=== PATIENT | male | born 1935 | race Caucasian/White ===

== ENCOUNTER → 2016-05-19 | Outpatient (CLI) | payer MEDICARE, BC ==
[2016-05-19 11:35] LABS: CHLORIDE,CL 110 mmol/L (98-110); SODIUM,NA 142 mmol/L (136-146)
== END ==
LOC: MW.CHIM 10:59
PROVIDERS: ATTEND Internal Medicine
DX: N28.9 Disorder of kidney and ureter, unspecified (principal)
CPT/HCPCS: 36415; 80053; 85025; 99214

== ENCOUNTER → 2016-06-28 | Outpatient (CLI) | payer MEDICARE, BC ==
[2016-06-28 11:06] LABS: CHLORIDE,CL 110 mmol/L (98-110); SODIUM,NA 142 mmol/L (136-146)
== END | disposition home or self-care (01) ==
LOC: MW.CHIM 10:17
PROVIDERS: ATTEND Internal Medicine
DX: R41.82 Altered mental status, unspecified (principal); I67.89 Other cerebrovascular disease; R46.89 Other symptoms and signs involving appearance and behavior
CPT/HCPCS: 36415; 80053; 81001; 85025; 87086; G0463

== ENCOUNTER → 2016-06-30 | Outpatient (CLI) | payer MEDICARE, BC ==
--- NOTE | 2016-06-30 12:14 | CT ---
EXAMINATION: Non contrast CT head. Coronal and sagittal reformats. HISTORY: Altered mental status FINDINGS: No evidence of intra or extra axial hemorrhage, mass, midline shift, hydrocephalus or edema. Mild t o moderate periventricular white matter hypodensities are noted. No hypoattenuation changes in the major vascular territories to suggest acute infarct. No abnormal intracranial calcifications are detected. No evidence of substantial vascular calcifications. Paranasal sinuses and mastoid air cells are well aerated without substantial findings. Pituitary fo ssa appears unremarkable. The calvarium is intact. No evidence of skull fracture. IMPRESSION: 1. No acute intracranial findings. 2. Mild to moderate small vessel ischemic changes.
== END | disposition home or self-care (01) ==
LOC: MW.DI 10:55
PROVIDERS: ATTEND Internal Medicine
DX: R41.82 Altered mental status, unspecified (principal); I67.89 Other cerebrovascular disease
CPT/HCPCS: 70450; 70450-26

== ENCOUNTER 2017-01-03 11:50 | Inpatient (IN) | payer MEDICARE, BC ==
[2017-01-03] MEDS ORDERED: Sodium Chloride 0.9% 2.5 ML Syringe FLUSH PRN (12:20)
[2017-01-03] MEDS ORDERED: Ondansetron 4 MG/2 ML SDV IVPUSH PRN (12:20)
--- NOTE | 2017-01-03 12:34 | PCM.HP ---
Addendum entered and electronically signed by Ananya Crenshaw NP 01/03/17 17:42 : Noted to be cachetic in appearance. From December 15 appointment to todays appointment he has almost 20 lb weight loss noted. Original Note: H&P History of Present Illness - General Date of Service: 01/03/17 Admit Problem/Dx: Admission Diagnosis/Problem Admission Diagnosis/Problem Acute kidney injury Source of Information: Patient, Family (daughter and at bedside) History Limitations: Reports: No Limitations - History of Present Illness Initial Comments - Free Text/Narative: This 81 year old male with pmh of COPD and anxiety presented to Dr. Elam's clinic today with concerns of no appetite, abdominal pain and no energy. They report he has been having some GERD like symptoms for approximately 1 mo, they were seen in PCP the middle of November for L sided chest pain, cardiac workup was negative, he was treated for possible COPD exacerbation with Prednisone and then seen at a walk in clinic and give Augmentin for erythematous throat. He continues to have troubles, especially with eating. He reports nausea and the inability to keep much food or fluids down. He reports pain with a few spoonfuls of soup yesterday. He has been very fatigued and low energy, daughter reports some confusion. He denies abdominal pain otherwise, he has been passing gas and having scant BMs. Denies black or bloody BMs, no chest pain. has SOB and anxiety. He typically takes Lorazepam 0.25 mg BID to TID for anxiety. He has hx of smoking, but quit many years ago. In the clinic leukocytosis noted, 13,000, Hgb 15.7, hct 45.9, Cl 11, Bicarb 15, Na 145, K+ 4.9, BUN 55, Cr 3.2. Ua negative. Abdominal Xray revaeled severe gaseous distension of esophagous and stomach. This was noted on December 15 chest x ray as well. He will be admitted for further evaluation and treated for KARINA secondary to dehydration and possible SBO vs gastroparesis PCP, Dr Pickens. Hsi and his request Full code at this time, but they state if he needs to be kept alive on ventilator, he would not want this or to suspend efforts if it "doesn't look good". - Related Data Allergies/Adverse Reactions: Allergies Allergy/AdvReac Type Severity Reaction Status Date / Time No Known Allergies Allergy Verified 11/18/13 13:40 Home Medications: Home Meds Albuterol Sulfate [Proair Hfa] 2 inh IH Q4H PRN 01/03/17 [History] Amoxicillin/Potassium Clav [Amox-Clav 500-125 mg Tablet] 1 tab PO BID 01/03/17 [ History] LORazepam [LORazepam] 0.5 mg PO TID PRN 01/03/17 [History] Omeprazole [Omeprazole] 20 mg PO ACBREAKFAST 01/03/17 [History] Tiotropium [place] [Spiriva Respimat] 1 inh IH DAILY 01/03/17 [History] Past Medical History Cardiovascular History: Reports: None. Denies: Afib, Blood Clots/VTE/DVT, CAD, High Cholesterol, Hypertension, IA Respiratory History: Reports: COPD, SOB. Denies: PE Gastrointestinal History: Reports: GERD. Denies: Bowel Obstruction, Helicobacter Pylori Genitourinary History: Reports: Chronic Renal Insuffiency Neurological History: Denies: CVA, TIA Psychiatric History: Reports: Anxiety Endocrine/Metabolic History: Denies: Diabetes, Type II, Hypothyroidism - Past Surgical History GI Surgical History: Reports: None Social & Family History - Tobacco Use Smoking Status *Q: Former Smoker Tobacco Use Within Last Twelve Months: Cigarettes - Alcohol Use Alcohol Use History: No - Living Situation & Occupation Living situation: Reports: Occupation: Retired H&P Review of Systems - Review of Systems: Review Of Systems: See Below General: Reports: Fatigue, Decreased Appetite HEENT: Reports: Sore Throat. Denies: Sinus Congestion Pulmonary: Reports: Shortness of Breath. Denies: Cough Cardiovascular: Denies: Chest Pain, Palpitations, Edema Gastrointestinal: Reports: Abdominal Pain (with eating), Diarrhea, Decreased Appetite, Nausea, Vomiting. Denies: Black Stool, Bloody Stool, Difficulty Swallowing, Distension, Hematemesis, Stool Incontinence Genitourinary: Reports: No Symptoms. Denies: Dysuria, Frequency, Burning, Pain Musculoskeletal: Reports: No Symptoms. Denies: Neck Pain Skin: Reports: No Symptoms Psychiatric: Reports: Anxiety Neurological: Reports: Confusion (daughter reports some confusion) Hematologic/Lymphatic: Reports: No Symptoms Immunologic: Reports: No Symptoms Exam - Exam Exam: See Below - Vital Signs Vital Signs: Last Vital Signs Temp 97.7 F 01/03/17 12:07 Pulse 112 H 01/03/17 12:07 Resp 24 H 01/03/17 12:07 BP 139/89 01/03/17 12:07 Pulse Ox 97 01/03/17 12:07 - Exam General: Alert, Oriented, Cooperative, Mild Distress (anxious regarding admission) HEENT: Conjunctiva Clear, Posterior Pharynx Clear (scant erythema), Other ( missing chipped teeth.). No: Mucosa Moist & Wood (dry) Lungs: Clear to Auscultation, Normal Respiratory Effort Cardiovascular: Regular Rhythm, Tachycardia GI/Abdominal Exam: Normal Bowel Sounds, Soft, Non-Tender, No Mass, Other (dry mouth, constantly drinking water and spitting it out. otherwise he reports he will throw it up. ). No: Distended, Guarding, Rigid, Rebound Extremities: Normal Inspection, Normal Range of Motion, Non-Tender, No Pedal Edema, Normal Capillary Refill Neuro Extensive - Mental Status: Alert, Oriented x3 Psychiatric: Alert, Normal Affect, Anxious *Q Meaningful Use (ADM) - VTE *Q VTE Criteria *Q: - Stroke *Q Stroke Criteria *Q: - AMI *Q AMI Criteria *Q: - Problem List (1) KARINA (acute kidney injury) SNOMED Code(s): 83121223 ICD Code: N17.9 - ACUTE KIDNEY FAILURE, UNSPECIFIED Status: Acute Current Visit: Yes (2) Dehydration SNOMED Code(s): 55130323 ICD Code: E86.0 - DEHYDRATION Status: Acute Current Visit: Yes (3) Nausea & vomiting SNOMED Code(s): 35075768 ICD Code: R11.2 - NAUSEA WITH VOMITING, UNSPECIFIED Status: Acute Current Visit: Yes (4) COPD (chronic obstructive pulmonary disease) SNOMED Code(s): 52904084 ICD Code: J44.9 - CHRONIC OBSTRUCTIVE PULMONARY DISEASE, UNSPECIFIED Status : Chronic Current Visit: Yes Qualifiers: COPD type: chronic bronchitis Chronic bronchitis type: unspecified Qualified Code(s): J42 - Unspecified chronic bronchitis (5) Anxiety SNOMED Code(s): 10372278 ICD Code: F41.9 - ANXIETY DISORDER, UNSPECIFIED Status: Chronic Current Visit: Yes Problem List Initiated/Reviewed/Updated: Yes Orders Last 24hrs: Active Orders 24 hr Category Date Time Status Patient Status [ADT] Routine ADT 01/03/17 12:20 Ordered Intake and Output [RC] QSHIFT Care 01/03/17 12:21 Ordered Oxygen Therapy [RC] PRN Care 01/03/17 12:20 Ordered Up With Assistance [RC] ASDIRECTED Care 01/03/17 12:20 Ordered VTE/DVT Education [RC] PER UNIT ROUTINE Care 01/03/17 12:20 Ordered Vital Signs [RC] Q4H Care 01/03/17 12:20 Ordered Nothing Per Oral Diet [DIET] Diet 01/03/17 Dinner Ordered CBC WITH AUTO DIFF [HEME] AM Lab 01/04/17 05:11 Ordered CBC WITH AUTO DIFF [HEME] AM Lab 01/05/17 05:11 Ordered CBC WITH AUTO DIFF [HEME] AM Lab 01/06/17 05:11 Ordered COMPREHENSIVE METABOLIC PN,CMP [CHEM] AM Lab 01/04/17 05:11 Ordered COMPREHENSIVE METABOLIC PN,CMP [CHEM] AM Lab 01/05/17 05:11 Ordered COMPREHENSIVE METABOLIC PN,CMP [CHEM] AM Lab 01/06/17 05:11 Ordered Heparin Sodium Med 01/03/17 21:00 Ordered 5,000 units SUBCUT Q12HR LORazepam [Ativan] Med 01/03/17 12:27 Ordered 0.25 mg IVPUSH Q6H PRN Ondansetron [Zofran] Med 01/03/17 12:20 Ordered 4 mg IVPUSH Q4H PRN Sodium Chloride 0.45% @ 125 MLS/HR(1,000ml) Med 01/03/17 12:30 Ordered Sodium Chloride 0.45% 1,000 ml IV ASDIRECTED Sodium Chloride 0.9% [Saline Flush] Med 01/03/17 12:20 Ordered 2.5 ml FLUSH ASDIRECTED PRN Saline Lock Insert [OM.PC] Routine Oth 01/03/17 12:20 Ordered Resuscitation Status Routine Resus Stat 01/03/17 12:20 Ordered Medication Orders Heparin Sodium (Porcine) (Heparin Sodium) 5,000 units SUBCUT Q12HR DAVID Sodium Chloride (Sodium Chloride 0.45%) 1,000 mls @ 125 mls/hr IV ASDIRECTED ADVID Lorazepam (Ativan) 0.25 mg IVPUSH Q6H PRN PRN Reason: Anxiety Ondansetron HCl (Zofran) 4 mg IVPUSH Q4H PRN PRN Reason: Nausea Sodium Chloride (Saline Flush) 2.5 ml FLUSH ASDIRECTED PRN PRN Reason: Keep Vein Open Assessment/Plan Comment:: This 81 year old male admitted for KARINA secondary to dehydration and possible SBO. 1. KARINA: From review clinic records, baseline BUN 20s with Cr 1.5. Will hydrate with IVFs, 1/2 NS 125 mls/hr, monitor labwork in am. 2. Dehydration: as above. 3. possible SBO: Will place NG tube for gastric decompression. Nursing attempted x 2 with no success, will consult Dr. Scott to place. Patient is declining CT due to the inability to lie flat, unless sedated. Consult Dr Ge general surgery as well. Place NPO. 4. COPD: Continue home inhalers. Stable at this time 5. Anxiety: Will continue Ativan IV QID PRN for anxiety. VTE prophylaxis: Heparin Dispo: pending improvement, 2-3 days
[2017-01-03] MEDS: Sodium Chloride 0.45% 1,000 ML IV SCH ×2 (12:48→21:05)
[2017-01-03] MEDS ORDERED: Albuterol/Ipratropium 3.0-0.5 MG/3 ML Neb Soln NEB PRN (12:56)
[2017-01-03] MEDS ORDERED: Albuterol 8 GM Inhaler INH PRN (12:56)
[2017-01-03] MEDS ORDERED: Phenol 1.4% Oral Spray 177 ML Bottle MUCMEM PRN (12:59)
[2017-01-03] MEDS ORDERED: LORazepam 2 MG/ML MDV IVPUSH ONE (14:58)
[2017-01-03] MEDS ORDERED: FLU Vacc QS 2017-18 (36mos UP)/PF 60 MCG/0.5 ML Syringe IM ONE (17:00)
[2017-01-03] MEDS ORDERED: Pneumococcal Polyvalent-23 Vaccine 0.5 ML SDV IM ONE (17:00)
[2017-01-03] MEDS: Pantoprazole 40 MG in Sodium Chloride 0.9% 10 ML IVPUSH SCH (17:47)
[2017-01-03] MEDS: Heparin Sodium 5,000 Units/ML Vial SUBCUT SCH (21:08)
[2017-01-04] MEDS: Sodium Chloride 0.45% 1,000 ML IV SCH ×3 (04:02→20:23)
--- NOTE | 2017-01-04 08:19 | PCM.PN ---
- General Info Date of Service: 01/04/17 Admission Dx/Problem (Free Text): Admission Diagnosis/Problem Admission Diagnosis/Problem Acute kidney injury Subjective Update: Doing better today, urinating well. eating CL in scant amounts. Spitting most out. Will have swallow eval, continues to refuse CT due to the inability to lie flat. Denies chest pain, SOB or palpitations, no abdominal pain, passing flatus and scant BM. Has a lot of anxiety. Functional Status: Reports: Pain Controlled, Tolerating Diet, Ambulating, Urinating - Review of Systems HEENT: Reports: Sore Throat (feels hoarse.). Denies: Headaches, Visual Changes Pulmonary: Reports: No Symptoms. Denies: Shortness of Breath, Cough Cardiovascular: Reports: No Symptoms. Denies: Chest Pain, Edema Gastrointestinal: Reports: Flatus. Denies: Abdominal Pain, Nausea, Vomiting Neurological: Reports: Confusion (family notices some confusion. ) - Patient Data Vitals - Most Recent: Last Vital Signs Temp 98.2 F 01/04/17 04:00 Pulse 93 01/04/17 04:00 Resp 18 01/04/17 04:00 BP 125/79 01/04/17 04:00 Pulse Ox 95 01/04/17 04:00 Weight - Most Recent: 66 kg I&O - Last 24 Hours: Intake & Output 01/03/17 01/04/17 01/04/17 22:59 06:59 14:59 Intake Total 450 1609 Output Total 150 250 Balance 300 1359 Lab Results Last 24 Hours: Laboratory Results - last 24 hr 01/04/17 01/04/17 Range/Units 05:18 05:18 WBC 9.19 (4.0-11.0) K/uL RBC 4.56 (4.50-5.90) M/uL Hgb 13.1 (13.0-17.0) g/dL Hct 39.1 (38.0-50.0) % MCV 85.7 (80.0-98.0) fL MCH 28.7 (27.0-32.0) pg MCHC 33.5 (31.0-37.0) g/dL RDW Std Deviation 44.4 (28.0-62.0) fl RDW Coeff of Asif 15 (11.0-15.0) % Plt Count 249 (150-400) K/uL MPV 9.80 (7.40-12.00) fL Neut % (Auto) 80.1 H (48.0-80.0) % Lymph % (Auto) 11.0 L (16.0-40.0) % [place] % (Auto) 7.7 (0.0-15.0) % Eos % (Auto) 0.5 (0.0-7.0) % Baso % (Auto) 0.7 (0.0-1.5) % Neut # (Auto) 7.4 H (1.4-5.7) K/uL Lymph # (Auto) 1.0 (0.6-2.4) K/uL [place] # (Auto) 0.7 (0.0-0.8) K/uL Eos # (Auto) 0.1 (0.0-0.7) K/uL Baso # (Auto) 0.1 (0.0-0.1) K/uL Nucleated RBC % 0.0 /100WBC Nucleated RBCs # 0 K/uL Sodium 145 (136-146) mmol/L Potassium 4.3 (3.5-5.1) mmol/L Chloride 116 H (98-110) mmol/L Carbon Dioxide 16 L (21-31) mmol/L BUN 54 H (6.0-23.0) mg/dL Creatinine 2.6 H (0.6-1.5) mg/dL Est Cr Clr Drug Dosing 21.15 mL/min Estimated GFR (MDRD) 23.9 ml/min Glucose 80 (60-110) mg/dL Calcium 8.6 L (8.8-10.8) mg/dL Total Bilirubin 1.0 (0.1-1.5) mg/dL AST 15 (5-40) IU/L ALT 13 (8-54) IU/L Alkaline Phosphatase 54 (40-150) Total Protein 6.1 (6.0-8.0) g/dL Albumin 3.5 (3.4-4.8) g/dL Globulin 2.6 (2.0-3.5) g/dL Albumin/Globulin Ratio 1.3 (1.3-2.8) TSH 3rd Generation 0.35 L (0.47-5.0) uIU/mL Med Orders - Current: Current Medications Albuterol (Ventolin Hfa) 8 gm INH Q4H PRN PRN Reason: Shortness of Breath Albuterol/Ipratropium (Duoneb 3.0-0.5 Mg/3 Ml) 3 ml NEB Q4HRRT PRN PRN Reason: SOB/Wheezing Heparin Sodium (Porcine) (Heparin Sodium) 5,000 units SUBCUT Q12HR DAVID Last Admin: 01/03/17 21:08 Dose: 5,000 units Sodium Chloride (Sodium Chloride 0.45%) 1,000 mls @ 125 mls/hr IV ASDIRECTED DAVID Last Admin: 01/04/17 04:02 Dose: 125 mls/hr Pantoprazole Sodium 40 mg/ (Sodium Chloride) 10 mls @ 300 mls/hr IVPUSH Q24H DAVID Last Admin: 01/03/17 17:47 Dose: 300 mls/hr Lorazepam (Ativan) 0.25 mg IVPUSH Q6H PRN PRN Reason: Anxiety Ondansetron HCl (Zofran) 4 mg IVPUSH Q4H PRN PRN Reason: Nausea Last Admin: 01/03/17 12:48 Dose: 4 mg Phenol/Menthol (Chloraseptic Throat [place]) 1 ml MUCMEM Q2H PRN PRN Reason: NG tube irritation Sodium Chloride (Saline Flush) 2.5 ml FLUSH ASDIRECTED PRN PRN Reason: Keep Vein Open Tiotropium [place] (Spiriva Handihaler) 18 mcg INH DAILY DAVID Discontinued Medications Influenza Virus Vaccine (Pharmacy To Dose - Influenza Vaccine) 1 each IM ASDIRECTED ONE Stop: 01/03/17 16:37 Influenza Virus Vaccine (Fluarix Quad [id number]) 60 mcg IM .ONCE ONE Stop: 01/03/17 17:01 Lorazepam (Ativan) 0.5 mg IVPUSH ONETIME ONE Stop: 01/03/17 14:59 Last Admin: 01/03/17 15:11 Dose: 0.5 mg Pneumococcal Polyvalent Vaccine (Pneumovax 23) 0.5 ml IM .ONCE ONE Stop: 01/03/17 17:01 - Exam General: Alert, Oriented, Cooperative, No Acute Distress, Other (cachectic in appearance, sunken cheeks) Neck: Supple, Trachea Midline, No Thyromegaly. No: Lymphadenopathy Lungs: Clear to Auscultation, Normal Respiratory Effort Cardiovascular: Regular Rate, Regular Rhythm, No Murmurs GI/Abdominal Exam: Normal Bowel Sounds, Soft, Non-Tender, No Organomegaly, No Distention, No Abnormal Bruit, No Mass, Pelvis Stable Extremities: Normal Inspection, Normal Range of Motion, Non-Tender, No Pedal Edema, Normal Capillary Refill Neurological: No New Focal Deficit Psy/Mental Status: Anxious (frequently asks questions, bends head down in stress , figidity when talking to him. ) - Problem List & Annotations (1) KARINA (acute kidney injury) SNOMED Code(s): 10644741 Code(s): N17.9 - ACUTE KIDNEY FAILURE, UNSPECIFIED Status: Acute Current Visit: Yes (2) Dehydration SNOMED Code(s): 40242148 Code(s): E86.0 - DEHYDRATION Status: Acute Current Visit: Yes (3) Nausea & vomiting SNOMED Code(s): 49924546 Code(s): R11.2 - NAUSEA WITH VOMITING, UNSPECIFIED Status: Acute Current Visit: Yes (4) COPD (chronic obstructive pulmonary disease) SNOMED Code(s): 69903694 Code(s): J44.9 - CHRONIC OBSTRUCTIVE PULMONARY DISEASE, UNSPECIFIED Status : Chronic Current Visit: Yes Qualifiers: COPD type: chronic bronchitis Chronic bronchitis type: unspecified Qualified Code(s): J42 - Unspecified chronic bronchitis (5) Anxiety SNOMED Code(s): 65551789 Code(s): F41.9 - ANXIETY DISORDER, UNSPECIFIED Status: Chronic Current Visit: Yes - Problem List Review Problem List Initiated/Reviewed/Updated: Yes - My Orders Last 24 Hours: My Active Orders 01/03/17 12:20 Patient Status [ADT] Routine Oxygen Therapy [RC] PRN Up With Assistance [RC] ASDIRECTED Vital Signs [RC] Q4H Ondansetron [Zofran] 4 mg IVPUSH Q4H PRN Sodium Chloride 0.9% [Saline Flush] 2.5 ml FLUSH ASDIRECTED PRN Saline Lock Insert [OM.PC] Routine Resuscitation Status Routine 01/03/17 12:21 Intake and Output [RC] Q12H 01/03/17 12:27 LORazepam [Ativan] 0.25 mg IVPUSH Q6H PRN 01/03/17 12:30 Sodium Chloride 0.45% 1,000 ml IV ASDIRECTED 01/03/17 12:55 NG [Gastrointestinal Tube Mgmt] [RC] ASDIRECTED 01/03/17 12:56 Albuterol [Ventolin HFA] 8 gm INH Q4H PRN Albuterol/Ipratropium [DuoNeb 3.0-0.5 MG/3 ML] 3 ml NEB Q4HRRT PRN 01/03/17 12:57 RT Aerosol Therapy [RC] ASDIRECTED 01/03/17 12:59 Phenol [Chloraseptic Throat [place]] 1 ml MUCMEM Q2H PRN 01/03/17 14:59 Notify Provider Consults [RC] ASDIRECTED Consult to Physician [CONS] Routine 01/03/17 17:39 Consult to Speech Language Pathology [DRILL INSTRUCTOR Evaluation and Treatment] [CONS] Routine 01/03/17 18:00 Pantoprazole [ProTONIX IV] 40 mg Sodium Chloride 0.9% [Normal Saline] 10 ml IVPUSH Q24H 01/03/17 21:00 Heparin Sodium 5,000 units SUBCUT Q12HR 01/04/17 05:18 COMPREHENSIVE METABOLIC PN,CMP [CHEM] AM 01/04/17 09:00 Tiotropium [Spiriva HandiHaler] 18 mcg INH DAILY 01/05/17 05:11 CBC WITH AUTO DIFF [HEME] AM COMPREHENSIVE METABOLIC PN,CMP [CHEM] AM 01/06/17 05:11 CBC WITH AUTO DIFF [HEME] AM COMPREHENSIVE METABOLIC PN,CMP [CHEM] AM - Plan Plan:: This 81 year old male admitted for KARINA secondary to dehydration and possible SBO. 1. KARINA: Improving, BUN 54 Cr 2.6 today.(baseline BUN 20s with Cr 1.5) Continue to hydrate with IVFs, 1/2 NS 125 mls/hr, monitor labwork in am. 2. Dehydration: Improving. as above. 3. possible SBO vs ilesu: NG unable to be placed by nursing and Dr. Scott in radiology. He continues to decline CT due to the inability to lie flat. Dr Ge consulted, considering EGD as outpatient. passing flatus and has scant BM last night. 5. Dysphagia: He passed swallow evaluation, no further recommendations. Will obtain esophagram today to evaluate for stricture or other mechanical cause for swallowing trouble. May consider pyschogenic cause of swallow issue? Anxiety relate to swallowing and choking? Has lost 20 lbs in last 3-4 weeks, family reports he has not been eating but besides very small amounts of cereal and eggs. 4. COPD: Continue home inhalers. Stable at this time 5. Anxiety: Will continue Ativan IV QID PRN for anxiety. VTE prophylaxis: Heparin Dispo: pending improvement, 2-3 days
[2017-01-04] MEDS: Heparin Sodium 5,000 Units/ML Vial SUBCUT SCH ×2 (08:25→20:24)
--- NOTE | 2017-01-04 09:55 | PCM.SURGPN ---
- General Info Date of Service: 01/04/17 Functional Status: Reports: Pain Controlled - Review of Systems General: Reports: No Symptoms Gastrointestinal: Reports: No Symptoms (passing gas, and small bm) - Patient Data Vitals - Most Recent: Last Vital Signs Temp 98.4 F 01/04/17 08:00 Pulse 89 01/04/17 08:00 Resp 16 01/04/17 08:00 BP 122/75 01/04/17 08:00 Pulse Ox 98 01/04/17 08:00 Weight - Most Recent: 145 lb 8.081 oz I&O - Last 24 Hours: Intake & Output 01/03/17 01/04/17 01/04/17 22:59 06:59 14:59 Intake Total 450 1609 Output Total 150 250 Balance 300 1359 Lab Results Last 24 Hrs: Laboratory Results - last 24 hr 01/04/17 01/04/17 Range/Units 05:18 05:18 WBC 9.19 (4.0-11.0) K/uL RBC 4.56 (4.50-5.90) M/uL Hgb 13.1 (13.0-17.0) g/dL Hct 39.1 (38.0-50.0) % MCV 85.7 (80.0-98.0) fL MCH 28.7 (27.0-32.0) pg MCHC 33.5 (31.0-37.0) g/dL RDW Std Deviation 44.4 (28.0-62.0) fl RDW Coeff of Asif 15 (11.0-15.0) % Plt Count 249 (150-400) K/uL MPV 9.80 (7.40-12.00) fL Neut % (Auto) 80.1 H (48.0-80.0) % Lymph % (Auto) 11.0 L (16.0-40.0) % [place] % (Auto) 7.7 (0.0-15.0) % Eos % (Auto) 0.5 (0.0-7.0) % Baso % (Auto) 0.7 (0.0-1.5) % Neut # (Auto) 7.4 H (1.4-5.7) K/uL Lymph # (Auto) 1.0 (0.6-2.4) K/uL [place] # (Auto) 0.7 (0.0-0.8) K/uL Eos # (Auto) 0.1 (0.0-0.7) K/uL Baso # (Auto) 0.1 (0.0-0.1) K/uL Nucleated RBC % 0.0 /100WBC Nucleated RBCs # 0 K/uL Sodium 145 (136-146) mmol/L Potassium 4.3 (3.5-5.1) mmol/L Chloride 116 H (98-110) mmol/L Carbon Dioxide 16 L (21-31) mmol/L BUN 54 H (6.0-23.0) mg/dL Creatinine 2.6 H (0.6-1.5) mg/dL Est Cr Clr Drug Dosing 21.15 mL/min Estimated GFR (MDRD) 23.9 ml/min Glucose 80 (60-110) mg/dL Calcium 8.6 L (8.8-10.8) mg/dL Total Bilirubin 1.0 (0.1-1.5) mg/dL AST 15 (5-40) IU/L ALT 13 (8-54) IU/L Alkaline Phosphatase 54 (40-150) Total Protein 6.1 (6.0-8.0) g/dL Albumin 3.5 (3.4-4.8) g/dL Globulin 2.6 (2.0-3.5) g/dL Albumin/Globulin Ratio 1.3 (1.3-2.8) TSH 3rd Generation 0.35 L (0.47-5.0) uIU/mL Med Orders - Current: Current Medications Albuterol (Ventolin Hfa) 8 gm INH Q4H PRN PRN Reason: Shortness of Breath Albuterol/Ipratropium (Duoneb 3.0-0.5 Mg/3 Ml) 3 ml NEB Q4HRRT PRN PRN Reason: SOB/Wheezing Heparin Sodium (Porcine) (Heparin Sodium) 5,000 units SUBCUT Q12HR DAVID Last Admin: 01/04/17 08:25 Dose: 5,000 units Sodium Chloride (Sodium Chloride 0.45%) 1,000 mls @ 125 mls/hr IV ASDIRECTED DAVID Last Admin: 01/04/17 04:02 Dose: 125 mls/hr Pantoprazole Sodium 40 mg/ (Sodium Chloride) 10 mls @ 300 mls/hr IVPUSH Q24H DAVID Last Admin: 01/03/17 17:47 Dose: 300 mls/hr Lorazepam (Ativan) 0.25 mg IVPUSH Q6H PRN PRN Reason: Anxiety Ondansetron HCl (Zofran) 4 mg IVPUSH Q4H PRN PRN Reason: Nausea Last Admin: 01/03/17 12:48 Dose: 4 mg Phenol/Menthol (Chloraseptic Throat [place]) 1 ml MUCMEM Q2H PRN PRN Reason: NG tube irritation Sodium Chloride (Saline Flush) 2.5 ml FLUSH ASDIRECTED PRN PRN Reason: Keep Vein Open Tiotropium Carey (Spiriva Handihaler) 18 mcg INH DAILY DAVID Discontinued Medications Influenza Virus Vaccine (Pharmacy To Dose - Influenza Vaccine) 1 each IM ASDIRECTED ONE Stop: 01/03/17 16:37 Influenza Virus Vaccine (Fluarix Quad [id number]) 60 mcg IM .ONCE ONE Stop: 01/03/17 17:01 Lorazepam (Ativan) 0.5 mg IVPUSH ONETIME ONE Stop: 01/03/17 14:59 Last Admin: 01/03/17 15:11 Dose: 0.5 mg Pneumococcal Polyvalent Vaccine (Pneumovax 23) 0.5 ml IM .ONCE ONE Stop: 01/03/17 17:01 - Exam General: Alert, Oriented GI/Abdominal Exam: Soft, Non-Tender, No Distention - Problem List Review Problem List Initiated/Reviewed/Updated: Yes - My Orders Last 24 Hours: Active Orders 24 hr Category Date Time Status Patient Status [ADT] Routine ADT 01/03/17 12:20 Active Intake and Output [RC] Q12H Care 01/03/17 12:21 Active NG [Gastrointestinal Tube Mgmt] [RC] ASDIRECTED Care 01/03/17 12:55 Active Notify Provider Consults [RC] ASDIRECTED Care 01/03/17 14:59 Active Oxygen Therapy [RC] PRN Care 01/03/17 12:20 Active RT Aerosol Therapy [RC] ASDIRECTED Care 01/03/17 12:57 Active Up With Assistance [RC] ASDIRECTED Care 01/03/17 12:20 Active Vital Signs [RC] Q4H Care 01/03/17 12:20 Active Consult to Physician [CONS] Routine Cons 01/03/17 14:59 Active Consult to Speech Language Pathology [[employer]SPORTATION [employer]ING [employer]ER Evaluation Cons 01/03/17 17:39 Active and Treatment] [CONS] Routine Clear Liquid Diet [DIET] Diet 01/03/17 Dinner Active Esophagus [CR] Routine Exams 01/04/17 09:48 Ordered Gastric Empty Study [NM] Routine Exams 01/04/17 09:48 Ordered CBC WITH AUTO DIFF [HEME] AM Lab 01/05/17 05:11 Ordered CBC WITH AUTO DIFF [HEME] AM Lab 01/06/17 05:11 Ordered COMPREHENSIVE METABOLIC PN,CMP [CHEM] AM Lab 01/04/17 05:18 Results COMPREHENSIVE METABOLIC PN,CMP [CHEM] AM Lab 01/05/17 05:11 Ordered COMPREHENSIVE METABOLIC PN,CMP [CHEM] AM Lab 01/06/17 05:11 Ordered FREE T3 [REF] Routine Lab 01/04/17 05:18 Received T4 TOTAL [CHEM] Routine Lab 01/04/17 05:18 Results TSH [CHEM] Routine Lab 01/04/17 05:18 Results Albuterol [Ventolin HFA] Med 01/03/17 12:56 Active 8 gm INH Q4H PRN Albuterol/Ipratropium [DuoNeb 3.0-0.5 MG/3 ML] Med 01/03/17 12:56 Active 3 ml NEB Q4HRRT PRN Heparin Sodium Med 01/03/17 21:00 Active 5,000 units SUBCUT Q12HR LORazepam [Ativan] Med 01/03/17 12:27 Active 0.25 mg IVPUSH Q6H PRN Ondansetron [Zofran] Med 01/03/17 12:20 Active 4 mg IVPUSH Q4H PRN Pantoprazole [ProTONIX IV] 40 mg Med 01/03/17 18:00 Active Sodium Chloride 0.9% [Normal Saline] 10 ml IVPUSH Q24H Phenol [Chloraseptic Throat [place]] Med 01/03/17 12:59 Active 1 ml MUCMEM Q2H PRN Sodium Chloride 0.45% 1,000 ml Med 01/03/17 12:30 Active IV ASDIRECTED Sodium Chloride 0.9% [Saline Flush] Med 01/03/17 12:20 Active 2.5 ml FLUSH ASDIRECTED PRN Tiotropium [Spiriva HandiHaler] Med 01/04/17 09:00 Active 18 mcg INH DAILY Saline Lock Insert [OM.PC] Routine Oth 01/03/17 12:20 Ordered Resuscitation Status Routine Resus Stat 01/03/17 12:20 Ordered Medication Orders Albuterol (Ventolin Hfa) 8 gm INH Q4H PRN PRN Reason: Shortness of Breath Albuterol/Ipratropium (Duoneb 3.0-0.5 Mg/3 Ml) 3 ml NEB Q4HRRT PRN PRN Reason: SOB/Wheezing Heparin Sodium (Porcine) (Heparin Sodium) 5,000 units SUBCUT Q12HR DAVID Last Admin: 01/04/17 08:25 Dose: 5,000 units Admin: 01/03/17 21:08 Dose: 5,000 units Sodium Chloride (Sodium Chloride 0.45%) 1,000 mls @ 125 mls/hr IV ASDIRECTED DAVID Last Admin: 01/04/17 04:02 Dose: 125 mls/hr Infusion: 01/04/17 04:02 Dose: 125 mls/hr Admin: 01/03/17 21:05 Dose: 125 mls/hr Infusion: 01/03/17 20:48 Dose: 125 mls/hr Admin: 01/03/17 12:48 Dose: 125 mls/hr Pantoprazole Sodium 40 mg/ (Sodium Chloride) 10 mls @ 300 mls/hr IVPUSH Q24H DAVID Last Admin: 01/03/17 17:47 Dose: 300 mls/hr Lorazepam (Ativan) 0.25 mg IVPUSH Q6H PRN PRN Reason: Anxiety Ondansetron HCl (Zofran) 4 mg IVPUSH Q4H PRN PRN Reason: Nausea Last Admin: 01/03/17 12:48 Dose: 4 mg Phenol/Menthol (Chloraseptic Throat [place]) 1 ml MUCMEM Q2H PRN PRN Reason: NG tube irritation Sodium Chloride (Saline Flush) 2.5 ml FLUSH ASDIRECTED PRN PRN Reason: Keep Vein Open Tiotropium [place] (Spiriva Handihaler) 18 mcg INH DAILY DAIVD - Assessment Assessment (Free Text/Narrative):: resolving ileus vs bowel obstruction, continue clear liquid diet, start thyroid supplement, await speech and swallow, may be as outpatient (?); would benefit from egd/colonoscope in a few weeks; cx dictated, [id number]; 5 mg dulcolax - Plan Plan (Free Text/Narrative):: resolving ileus vs bowel obstruction, continue clear liquid diet, start thyroid supplement, await speech and swallow, may be as outpatient (?); would benefit from egd/colonoscope in a few weeks; cx dictated, [id number]; 5 mg dulcolax
[2017-01-04] MEDS: Tiotropium Inhaler 18 MCG Inhalation Powder Cap Kit of 5 INH SCH (10:00)
[2017-01-04] MEDS ORDERED: Bisacodyl 10 MG Supp RECTAL ONE (10:30)
[2017-01-04] MEDS: LORazepam 2 MG/ML MDV IVPUSH PRN ×2 (13:59→20:24)
--- NOTE | 2017-01-04 14:13 | CONS ---
DATE OF CONSULTATION: 01/03/2017 DATE OF : 1935 PRIMARY CARE PHYSICIAN: Unknown PCP Consult was called yesterday, the patient was seen yesterday, and the consult is dictated from yesterday's examination. Consult question was possible bowel obstruction. HISTORY OF PRESENT ILLNESS: The patient is an 81-year-old gentleman with past medical history of COPD and anxiety, presented to primary care physician's clinic with concerns of poor appetite, abdominal pain, and no energy and weight loss. The patient apparently was noted to have a weight loss of over 20 pounds in two months. The patient had a problem with swallowing for more than 2-3 decades, i.e., 20 to 30 years and also with exacerbation of the symptoms in about one month and the patient is noted to be able to passing gas but with very small BM and the patient will have frequent spitting upon feeding. A workup included a plain film as the CT scan failed because the patient could not lie flat and plain film shows dilated stomach and Surgery was consulted. Upon consultation, lab work, white count was 13.48 and H and H was 16 and 46, platelet is 3.5; sodium is 145, potassium is 4.9, BUN is 55, and creatinine is 3.2. UA noted for no blood. PAST MEDICAL HISTORY: Significant for hypertension, COPD, GERD, chronic kidney injury, chronic renal insufficiency, diabetes type 2, and hypothyroidism. The patient does not have bowel obstruction and does not have H. pylori infection. ALLERGIES: Refer to nursing note for details. MEDICATIONS: Refer to nursing note for details. SOCIAL HISTORY: The patient is not a smoker. PCP is Dr. Pickens. PHYSICAL EXAMINATION: GENERAL: A cachectic-appearing gentleman with temporal wasting and resting in bed and sleeping all the time but is occasionally awake to answer questions, very appropriate, and very alert. HEENT: Normocephalic, atraumatic. Sclerae anicteric. Poor dentition. The patient's all the teeth are very rotten. LUNGS: Clear to auscultation. HEART: Regular rate and rhythm. ABDOMEN: Soft, nondistended. No pulsating tender midline abdominal structure. No surgical scar. Appropriate bowel sounds in all 4 quadrants. Nontender. No mass or nodule to suggest incarcerated hernia. IMPRESSION: Dilated stomach per x-ray and with attempt conservative management with NG tube placement, decompression, and if failed, proceed with fluoroscopy, placement of NG tube by Radiology, and follow serial abdominal exam and check thyroid panel and keep n.p.o. and we will follow the patient with you. Ileus versus bowel obstruction. Of note, the patient has loud passing fart in front of family member and also has continuous small smear from the bowel movement and also we will start with a very low dose of Dulcolax per rectum, like 5 mg. We will follow the patient with you. Also we will check a thyroid panel and also check a speech and swallow when available to see whether the patient has basically problem in speech that resulted in a fear of food or food fear. GAGE / MIKAELA /[id number] MTDD
--- NOTE | 2017-01-04 14:40 | CR ---
EXAMINATION: Single contrast esophagram HISTORY: Dysphasia COMPARISON: None TECHNIQUE: Standard single contrast esophagram performed. FINDINGS: The patient was only able to swallow very tiny sips of thin barium. Due to the gaseous dist ention of the esophagus the esophagus is not well opacified. On a few swallows there is a cyst within the horizontal line noted within the distal esophagus which could be an outline of interest esophage al filling defect. However this is also not well characterized. IMPRESSION: 1. Possible intraluminal filling defect within the distal esophagus however this was not well charact erized due to the patient unable to swallow an adequate bolus of barium.
[2017-01-04] MEDS: Pantoprazole 40 MG in Sodium Chloride 0.9% 10 ML IVPUSH SCH (17:05)
[2017-01-05] MEDS: Sodium Chloride 0.45% 1,000 ML IV SCH (04:27)
[2017-01-05] MEDS: Heparin Sodium 5,000 Units/ML Vial SUBCUT SCH (08:26)
--- NOTE | 2017-01-05 09:23 | PCM.DCSUM1 ---
<Ananya Crenshaw M - Last Filed: 01/05/17 09:40> Discharge Summary - Hospital Course Brief History: This 81 year old male with pmh of COPD and anxiety presented to Dr. Elam's clinic today with concerns of no appetite, abdominal pain and no energy. They report he has been having some GERD like symptoms for approximately 1 mo, they were seen in PCP the middle of November for L sided chest pain, cardiac workup was negative, he was treated for possible COPD exacerbation with Prednisone and then seen at a walk in clinic and give Augmentin for erythematous throat. He continues to have troubles, especially with eating. He reports nausea and the inability to keep much food or fluids down. He reports pain with a few spoonfuls of soup yesterday. He has been very fatigued and low energy, daughter reports some confusion. He denies abdominal pain otherwise, he has been passing gas and having scant BMs. Denies black or bloody BMs, no chest pain. has SOB and anxiety. He typically takes Lorazepam 0.25 mg BID to TID for anxiety. He has hx of smoking, but quit many years ago. In the clinic leukocytosis noted, 13,000, Hgb 15.7, hct 45.9, Cl 11, Bicarb 15, Na 145, K+ 4.9, BUN 55, Cr 3.2. Ua negative. Abdominal Xray revaeled severe gaseous distension of esophagous and stomach. This was noted on December 15 chest x ray as well. He will be admitted for further evaluation and treated for KARINA secondary to dehydration and possible SBO vs gastroparesis. Hsi and his request Full code at this time, but they state if he needs to be kept alive on ventilator, he would not want this or to suspend efforts if it "doesn't look good". - Discharge Data Discharge Date: 01/05/17 Discharge Disposition: Home, W Home Health Agency 06 Condition: Good - Discharge Diagnosis/Problem(s) (1) KARINA (acute kidney injury) SNOMED Code(s): 38157253 ICD Code: N17.9 - ACUTE KIDNEY FAILURE, UNSPECIFIED Status: Resolved (2) Dehydration SNOMED Code(s): 16735851 ICD Code: E86.0 - DEHYDRATION Status: Resolved (3) Nausea & vomiting SNOMED Code(s): 57329741 ICD Code: R11.2 - NAUSEA WITH VOMITING, UNSPECIFIED Status: Resolved (4) COPD (chronic obstructive pulmonary disease) SNOMED Code(s): 48081992 ICD Code: J44.9 - CHRONIC OBSTRUCTIVE PULMONARY DISEASE, UNSPECIFIED Status : Chronic QualifierTitle: COPD type: chronic bronchitis Chronic bronchitis type: unspecified Qualified Code(s): J42 - Unspecified chronic bronchitis (5) Anxiety SNOMED Code(s): 08275905 ICD Code: F41.9 - ANXIETY DISORDER, UNSPECIFIED Status: Chronic - Patient Summary/Data Consults: Consultations 01/03/17 14:59 Consult to Physician [CONS] Routine 01/03/17 17:39 Consult to Speech Language Pathology [MED SURG NURSE Evaluation and Treatment] [CONS] Routine - Patient Instructions Diet: Usual Diet as Tolerated Activity: As Tolerated Showering/Bathing: May Shower Notify Provider of: Fever, Increased Pain, Swelling and Redness, Drainage, Nausea and/or Vomiting - Discharge Plan Home Medications: Home Meds Albuterol Sulfate [Proair Hfa] 2 inh IH Q4H PRN 01/03/17 [History] LORazepam 0.5 mg PO TID PRN 01/03/17 [History] Omeprazole 20 mg PO ACBREAKFAST 01/03/17 [History] Tiotropium [place] [Spiriva Respimat] 1 inh IH DAILY 01/03/17 [History] Patient Handouts: Acute Kidney Injury, Dehydration, Adult, [id number] Referrals: Jesus Ge MD [Physician] - 01/12/17 9:45 am Ritchie Parsons [Resident] - 01/11/17 9:30 am - Discharge Summary/Plan Comment DC Time >30 min.: No Discharge Summary/Plan Comment: Discharge Diagnoses: KARINA Esophageal and gastric distension Weight loss Dysphagia Anxiety COPD Jigar(Pat) was admitted and treated with IVFs for KARINA. He was also noted to have severe gaseous distension of distal esophagus and stomach. He has remained passing flatus, no abdominal pain, and having BMs. NG was attempted to be placed , but was unsuccessful via nursing and Dr. Celina Scott. ST consulted, no concerns with dysphagia, even though patient and family expressed 30 + years of this. Patient has a long standing history of anxiety and there was thought to be a choking episode 30 years ago. Since then they also noted him to eat very little and has trouble swallowing. This all maybe related to anxiety. CT unable to be performed due to patient's anxiety and the need for full sedation due to the inability to lie flat, he feels like he is choking. Esophagram completed yesterday was incomplete, he was unable to drink large boluses of contrast. He may need outpatient EGD to fully explore esophagus and stomach. Dr Ge has been on case during inpatient admission and opted for outpatient possibility of EGD. Today BUN 40 and Cr 1.7. Family and patient are requesting discharge. He is eating FL and sot diet well, in small amounts, passing gas and having BMs. He continues to deny abdominal pain. Some delirium noted today, family aware this may be exacerbated by underlying dementia or cogntive decline and hospitalization. They continue to want to take him home and feel they will be able to care for him there. I will arrange follow up with Dr. Parsons. They have requested a new provider at this time. I will also arrange outpatient follow up with Dr. Ge to further explore outpatient EGD. Assistant Center Director has spoken with family. Pat will be discharge home today with Home Health following starting on Sunday or Sunday per family request. He is in need of skilled RN cares for assessment of weight and VS along with medication administration. He is home bound unless family members are able to transport him some where, he no longer drives. Plan of care to be follow by Dr. Parsons. He is to return to clinic or ED if concerns should arise. - General Info Date of Service: 01/05/17 Admission Dx/Problem (Free Text: Admission Diagnosis/Problem Admission Diagnosis/Problem Acute kidney injury Subjective Update: Asking to go home today, does appear confused and slightly delirius, family agrees they want to get him home to his own environment. Denies any pain and is sick of the hospital food. "I will eat whatever my makes me." - Review of Systems General: Denies: Fever HEENT: Reports: No Symptoms. Denies: Sore Throat Pulmonary: Reports: No Symptoms. Denies: Shortness of Breath Cardiovascular: Reports: No Symptoms. Denies: Chest Pain Gastrointestinal: Reports: No Symptoms. Denies: Abdominal Pain, Nausea, Vomiting Genitourinary: Reports: No Symptoms Musculoskeletal: Reports: No Symptoms Skin: Reports: No Symptoms Neurological: Reports: No Symptoms Psychiatric: Reports: Confusion - Patient Data Vitals - Most Recent: Last Vital Signs Temp 98.9 F 01/05/17 08:00 Pulse 72 01/05/17 08:00 Resp 17 01/05/17 08:00 BP 118/71 01/05/17 08:00 Pulse Ox 97 01/05/17 08:00 Weight - Most Recent: 66 kg I&O - Last 24 hours: Intake & Output 01/04/17 01/05/17 01/05/17 22:59 06:59 14:59 Intake Total 3148 1240 Output Total 450 500 Balance 4558 740 Lab Results - Last 24 hrs: Laboratory Results - last 24 hr 01/04/17 01/05/17 01/05/17 Range/Units 05:18 04:39 04:39 WBC 4.93 (4.0-11.0) K/uL RBC 4.19 L (4.50-5.90) M/uL Hgb 12.0 L (13.0-17.0) g/dL Hct 35.7 L (38.0-50.0) % MCV 85.2 (80.0-98.0) fL MCH 28.6 (27.0-32.0) pg MCHC 33.6 (31.0-37.0) g/dL RDW Std Deviation 43.1 (28.0-62.0) fl RDW Coeff of Asif 14 (11.0-15.0) % Plt Count 183 (150-400) K/uL MPV 9.90 (7.40-12.00) fL Neut % (Auto) 71.3 (48.0-80.0) % Lymph % (Auto) 15.6 L (16.0-40.0) % Martin % (Auto) 10.1 (0.0-15.0) % Eos % (Auto) 2.0 (0.0-7.0) % Baso % (Auto) 1.0 (0.0-1.5) % Neut # (Auto) 3.5 (1.4-5.7) K/uL Lymph # (Auto) 0.8 (0.6-2.4) K/uL Martin # (Auto) 0.5 (0.0-0.8) K/uL Eos # (Auto) 0.1 (0.0-0.7) K/uL Baso # (Auto) 0.1 (0.0-0.1) K/uL Nucleated RBC % 0.0 /100WBC Nucleated RBCs # 0 K/uL Sodium 139 (136-146) mmol/L Potassium 3.8 (3.5-5.1) mmol/L Chloride 113 H (98-110) mmol/L Carbon Dioxide 18 L (21-31) mmol/L BUN 40 H (6.0-23.0) mg/dL Creatinine 1.7 H (0.6-1.5) mg/dL Est Cr Clr Drug Dosing 32.35 mL/min Estimated GFR (MDRD) 39.0 ml/min Glucose 65 (60-110) mg/dL Calcium 8.3 L (8.8-10.8) mg/dL Total Bilirubin 1.0 (0.1-1.5) mg/dL AST 17 (5-40) IU/L ALT 13 (8-54) IU/L Alkaline Phosphatase 48 (40-150) Total Protein 5.5 L (6.0-8.0) g/dL Albumin 3.1 L (3.4-4.8) g/dL Globulin 2.4 (2.0-3.5) g/dL Albumin/Globulin Ratio 1.3 (1.3-2.8) Carcinoembryonic Ag ng/mL Free T3 pg/mL 2.46 L (2.50-3.90) pg/mL 01/05/17 Range/Units 04:39 WBC (4.0-11.0) K/uL RBC (4.50-5.90) M/uL Hgb (13.0-17.0) g/dL Hct (38.0-50.0) % MCV (80.0-98.0) fL MCH (27.0-32.0) pg MCHC (31.0-37.0) g/dL RDW Std Deviation (28.0-62.0) fl RDW Coeff of Asif (11.0-15.0) % Plt Count (150-400) K/uL MPV (7.40-12.00) fL Neut % (Auto) (48.0-80.0) % Lymph % (Auto) (16.0-40.0) % Martin % (Auto) (0.0-15.0) % Eos % (Auto) (0.0-7.0) % Baso % (Auto) (0.0-1.5) % Neut # (Auto) (1.4-5.7) K/uL Lymph # (Auto) (0.6-2.4) K/uL Martin # (Auto) (0.0-0.8) K/uL Eos # (Auto) (0.0-0.7) K/uL Baso # (Auto) (0.0-0.1) K/uL Nucleated RBC % /100WBC Nucleated RBCs # K/uL Sodium (136-146) mmol/L Potassium (3.5-5.1) mmol/L Chloride (98-110) mmol/L Carbon Dioxide (21-31) mmol/L BUN (6.0-23.0) mg/dL Creatinine (0.6-1.5) mg/dL Est Cr Clr Drug Dosing mL/min Estimated GFR (MDRD) ml/min Glucose (60-110) mg/dL Calcium (8.8-10.8) mg/dL Total Bilirubin (0.1-1.5) mg/dL AST (5-40) IU/L ALT (8-54) IU/L Alkaline Phosphatase (40-150) Total Protein (6.0-8.0) g/dL Albumin (3.4-4.8) g/dL Globulin (2.0-3.5) g/dL Albumin/Globulin Ratio (1.3-2.8) Carcinoembryonic Ag 1.1 ng/mL Free T3 pg/mL (2.50-3.90) pg/mL Med Orders - Current: Current Medications Albuterol (Ventolin Hfa) 8 gm INH Q4H PRN PRN Reason: Shortness of Breath Albuterol/Ipratropium (Duoneb 3.0-0.5 Mg/3 Ml) 3 ml NEB Q4HRRT PRN PRN Reason: SOB/Wheezing Heparin Sodium (Porcine) (Heparin Sodium) 5,000 units SUBCUT Q12HR DAVID Last Admin: 01/05/17 08:26 Dose: 5,000 units Sodium Chloride (Sodium Chloride 0.45%) 1,000 mls @ 125 mls/hr IV ASDIRECTED [facility] Last Admin: 01/05/17 04:27 Dose: 125 mls/hr Pantoprazole Sodium 40 mg/ (Sodium Chloride) 10 mls @ 300 mls/hr IVPUSH Q24H [facility] Last Admin: 01/04/17 17:05 Dose: 300 mls/hr Lorazepam (Ativan) 0.25 mg IVPUSH Q6H PRN PRN Reason: Anxiety Last Admin: 01/04/17 20:24 Dose: 0.25 mg Ondansetron HCl (Zofran) 4 mg IVPUSH Q4H PRN PRN Reason: Nausea Last Admin: 01/03/17 12:48 Dose: 4 mg Phenol/Menthol (Chloraseptic Throat [place]) 1 ml MUCMEM Q2H PRN PRN Reason: NG tube irritation Sodium Chloride (Saline Flush) 2.5 ml FLUSH ASDIRECTED PRN PRN Reason: Keep Vein Open Tiotropium [place] (Spiriva Handihaler) 18 mcg INH DAILY [facility] Last Admin: 01/04/17 10:00 Dose: Not Given Discontinued Medications Bisacodyl (Dulcolax) 5 mg RECTAL ONETIME ONE Stop: 01/04/17 10:31 Last Admin: 01/04/17 11:30 Dose: Not Given Influenza Virus Vaccine (Pharmacy To Dose - Influenza Vaccine) 1 each IM ASDIRECTED ONE Stop: 01/03/17 16:37 Influenza Virus Vaccine (Fluarix Quad [id number]) 60 mcg IM .ONCE ONE Stop: 01/03/17 17:01 Lorazepam (Ativan) 0.5 mg IVPUSH ONETIME ONE Stop: 01/03/17 14:59 Last Admin: 01/03/17 15:11 Dose: 0.5 mg Pneumococcal Polyvalent Vaccine (Pneumovax 23) 0.5 ml IM .ONCE ONE Stop: 01/03/17 17:01 - Exam General: Reports: Alert, Cooperative, No Acute Distress. Denies: Oriented Neck: Reports: Supple Lungs: Reports: Clear to Auscultation, Normal Respiratory Effort Cardiovascular: Reports: Regular Rate, Regular Rhythm GI/Abdominal Exam: Normal Bowel Sounds, Soft, Non-Tender, No Organomegaly, No Distention, No Abnormal Bruit, No Mass, Pelvis Stable Neurological: Reports: No New Focal Deficit Psy/Mental Status: Reports: Alert, Other (delirium noted, confusion. but not agitated and easily reoriented.) *Q Meaningful Use (DIS) - VTE *Q VTE Criteria *Q: - Stroke *Q Stroke Criteria *Q: - AMI *Q AMI Criteria *Q: <Desmond Flores - Last Filed: 01/05/17 20:11> Discharge Summary - Patient Summary/Data Consults: Consultations 01/03/17 14:59 Consult to Physician [CONS] Routine 01/03/17 17:39 Consult to Speech Language Pathology [MED SURG NURSE Evaluation and Treatment] [CONS] Routine - Patient Data Vitals - Most Recent: Last Vital Signs Temp 37.2 C 01/05/17 08:00 Pulse 72 01/05/17 08:00 Resp 17 01/05/17 08:00 BP 118/71 01/05/17 08:00 Pulse Ox 97 01/05/17 08:00 I&O - Last 24 hours: Intake & Output 01/05/17 01/05/17 01/05/17 06:59 14:59 22:59 Intake Total 1240 862 Output Total 500 0 Balance 740 862 Lab Results - Last 24 hrs: Laboratory Results - last 24 hr 01/04/17 01/05/17 01/05/17 Range/Units 05:18 04:39 04:39 WBC 4.93 (4.0-11.0) K/uL RBC 4.19 L (4.50-5.90) M/uL Hgb 12.0 L (13.0-17.0) g/dL Hct 35.7 L (38.0-50.0) % MCV 85.2 (80.0-98.0) fL MCH 28.6 (27.0-32.0) pg MCHC 33.6 (31.0-37.0) g/dL RDW Std Deviation 43.1 (28.0-62.0) fl RDW Coeff of Asif 14 (11.0-15.0) % Plt Count 183 (150-400) K/uL MPV 9.90 (7.40-12.00) fL Neut % (Auto) 71.3 (48.0-80.0) % Lymph % (Auto) 15.6 L (16.0-40.0) % Martin % (Auto) 10.1 (0.0-15.0) % Eos % (Auto) 2.0 (0.0-7.0) % Baso % (Auto) 1.0 (0.0-1.5) % Neut # (Auto) 3.5 (1.4-5.7) K/uL Lymph # (Auto) 0.8 (0.6-2.4) K/uL Martin # (Auto) 0.5 (0.0-0.8) K/uL Eos # (Auto) 0.1 (0.0-0.7) K/uL Baso # (Auto) 0.1 (0.0-0.1) K/uL Nucleated RBC % 0.0 /100WBC Nucleated RBCs # 0 K/uL Sodium 139 (136-146) mmol/L Potassium 3.8 (3.5-5.1) mmol/L Chloride 113 H (98-110) mmol/L Carbon Dioxide 18 L (21-31) mmol/L BUN 40 H (6.0-23.0) mg/dL Creatinine 1.7 H (0.6-1.5) mg/dL Est Cr Clr Drug Dosing 32.35 mL/min Estimated GFR (MDRD) 39.0 ml/min Glucose 65 (60-110) mg/dL Calcium 8.3 L (8.8-10.8) mg/dL Total Bilirubin 1.0 (0.1-1.5) mg/dL AST 17 (5-40) IU/L ALT 13 (8-54) IU/L Alkaline Phosphatase 48 (40-150) Total Protein 5.5 L (6.0-8.0) g/dL Albumin 3.1 L (3.4-4.8) g/dL Globulin 2.4 (2.0-3.5) g/dL Albumin/Globulin Ratio 1.3 (1.3-2.8) Carcinoembryonic Ag ng/mL Free T3 pg/mL 2.46 L (2.50-3.90) pg/mL 01/05/17 Range/Units 04:39 WBC (4.0-11.0) K/uL RBC (4.50-5.90) M/uL Hgb (13.0-17.0) g/dL Hct (38.0-50.0) % MCV (80.0-98.0) fL MCH (27.0-32.0) pg MCHC (31.0-37.0) g/dL RDW Std Deviation (28.0-62.0) fl RDW Coeff of Asif (11.0-15.0) % Plt Count (150-400) K/uL MPV (7.40-12.00) fL Neut % (Auto) (48.0-80.0) % Lymph % (Auto) (16.0-40.0) % Martin % (Auto) (0.0-15.0) % Eos % (Auto) (0.0-7.0) % Baso % (Auto) (0.0-1.5) % Neut # (Auto) (1.4-5.7) K/uL Lymph # (Auto) (0.6-2.4) K/uL Martin # (Auto) (0.0-0.8) K/uL Eos # (Auto) (0.0-0.7) K/uL Baso # (Auto) (0.0-0.1) K/uL Nucleated RBC % /100WBC Nucleated RBCs # K/uL Sodium (136-146) mmol/L Potassium (3.5-5.1) mmol/L Chloride (98-110) mmol/L Carbon Dioxide (21-31) mmol/L BUN (6.0-23.0) mg/dL Creatinine (0.6-1.5) mg/dL Est Cr Clr Drug Dosing mL/min Estimated GFR (MDRD) ml/min Glucose (60-110) mg/dL Calcium (8.8-10.8) mg/dL Total Bilirubin (0.1-1.5) mg/dL AST (5-40) IU/L ALT (8-54) IU/L Alkaline Phosphatase (40-150) Total Protein (6.0-8.0) g/dL Albumin (3.4-4.8) g/dL Globulin (2.0-3.5) g/dL Albumin/Globulin Ratio (1.3-2.8) Carcinoembryonic Ag 1.1 ng/mL Free T3 pg/mL (2.50-3.90) pg/mL Med Orders - Current: Current Medications Discontinued Medications Albuterol (Ventolin Hfa) 8 gm INH Q4H PRN PRN Reason: Shortness of Breath Albuterol/Ipratropium (Duoneb 3.0-0.5 Mg/3 Ml) 3 ml NEB Q4HRRT PRN PRN Reason: SOB/Wheezing Bisacodyl (Dulcolax) 5 mg RECTAL ONETIME ONE Stop: 01/04/17 10:31 Last Admin: 01/04/17 11:30 Dose: Not Given Heparin Sodium (Porcine) (Heparin Sodium) 5,000 units SUBCUT Q12HR [facility] Last Admin: 01/05/17 08:26 Dose: 5,000 units Sodium Chloride (Sodium Chloride 0.45%) 1,000 mls @ 125 mls/hr IV ASDIRECTED [facility] Last Admin: 01/05/17 04:27 Dose: 125 mls/hr Pantoprazole Sodium 40 mg/ (Sodium Chloride) 10 mls @ 300 mls/hr IVPUSH Q24H [facility] Last Admin: 01/04/17 17:05 Dose: 300 mls/hr Influenza Virus Vaccine (Pharmacy To Dose - Influenza Vaccine) 1 each IM ASDIRECTED ONE Stop: 01/03/17 16:37 Influenza Virus Vaccine (Fluarix Quad [id number]) 60 mcg IM .ONCE ONE Stop: 01/03/17 17:01 Influenza Virus Vaccine (Fluarix Quad [id number]) 60 mcg IM .ONCE ONE Stop: 01/05/17 10:01 Last Admin: 01/05/17 09:59 Dose: 60 mcg Lorazepam (Ativan) 0.25 mg IVPUSH Q6H PRN PRN Reason: Anxiety Last Admin: 01/04/17 20:24 Dose: 0.25 mg Lorazepam (Ativan) 0.5 mg IVPUSH ONETIME ONE Stop: 01/03/17 14:59 Last Admin: 01/03/17 15:11 Dose: 0.5 mg Ondansetron HCl (Zofran) 4 mg IVPUSH Q4H PRN PRN Reason: Nausea Last Admin: 01/03/17 12:48 Dose: 4 mg Phenol/Menthol (Chloraseptic Throat [place]) 1 ml MUCMEM Q2H PRN PRN Reason: NG tube irritation Pneumococcal Polyvalent Vaccine (Pneumovax 23) 0.5 ml IM .ONCE ONE Stop: 01/03/17 17:01 Sodium Chloride (Saline Flush) 2.5 ml FLUSH ASDIRECTED PRN PRN Reason: Keep Vein Open Tiotropium [place] (Spiriva Handihaler) 18 mcg INH DAILY [facility]ID Last Admin: 01/05/17 09:56 Dose: 1 cap *Q Meaningful Use (DIS) - VTE *Q VTE Criteria *Q: - Stroke *Q Stroke Criteria *Q: - AMI *Q AMI Criteria *Q: - Free Text/Narrative Note: I provided overview of the condition and the care of this patient. I concur with the exam and the plan documented.
[2017-01-05] MEDS: Tiotropium Inhaler 18 MCG Inhalation Powder Cap Kit of 5 INH SCH (09:56)
[2017-01-05] MEDS ORDERED: FLU Vacc QS 2017-18 (36mos UP)/PF 60 MCG/0.5 ML Syringe IM ONE (10:00)
== END 2017-01-05 10:15 | disposition home health service (06) | DRG 683 ==
LOC: MW.MS 11:50 → OBSVTOIN 12:20
PROVIDERS: ADMIT Internal Medicine; ATTEND Internal Medicine
PROC: 3E0234Z Introduction of Serum, Toxoid and Vaccine into Muscle, Percutaneous Approach (ICD-10-PCS; principal; 2017-01-05)
DX: N17.9 Acute kidney failure, unspecified (principal); K56.609 Unspecified intestinal obstruction, unspecified as to partial versus complete obstruction; R10.9 Unspecified abdominal pain; E86.0 Dehydration; J44.9 Chronic obstructive pulmonary disease, unspecified; F41.9 Anxiety disorder, unspecified; N18.9 Chronic kidney disease, unspecified; K21.9 Gastro-esophageal reflux disease without esophagitis; R13.10 Dysphagia, unspecified; Z87.891 Personal history of nicotine dependence; Z79.899 Other long term (current) drug therapy; R53.83 Other fatigue; K31.84 Gastroparesis; Z23 Encounter for immunization
CPT/HCPCS: 36415; 74220; 74220-26; 80053; 82378; 84436; 84443; 84481; 85025; 90686; 92610-GN; A9270-GY; C9113; G0008; J1644; J2060; J2405; J7030

== ENCOUNTER 2017-01-11 15:01 | Emergency (ER) | payer MEDICARE, BC ==
[2017-01-11] MEDS ORDERED: Aspirin 81 MG Tab.Chew PO ONE (15:06)
[2017-01-11] MEDS ORDERED: Sodium Chloride 0.9% 1,000 ML IV SCH (15:15)
[2017-01-11 15:44] LABS: CHLORIDE,CL 112 mmol/L (98-110); SODIUM,NA 140 mmol/L (136-146)
--- NOTE | 2017-01-11 15:48 | EDM.PDOC ---
ED HPI GENERAL MEDICAL PROBLEM - General Chief Complaint: Chest Pain Stated Complaint: CHEST PAIN Time Seen by Provider: 01/11/17 15:45 Source of Information: Reports: Patient - History of Present Illness INITIAL COMMENTS - FREE TEXT/NARRATIVE: HISTORY AND PHYSICAL: History of present illness: [Patient presents with history of anxiety complains of abdominal pain throughout this morning, he did mention some chest discomfort and shortness of breath to his son which prompted his visit at this time. He had seen his primary care provider this morning as well. Patient is quite anxious as he had a recent admission for chest pain with completely negative workup. He also has a history of acid reflux and his primary care as recommended Pepcid and has scheduled him for an EGD concerning this is resolved to schedule this morning. Chest pain had resolved by arrival he is 0 out of 10 pain now no association with diaphoresis no radiation arm neck or jaw No fever nausea vomiting chills sweats no chest pain shortness breath headache dizziness palpitation no bowel or urine symptoms at current ] Review of systems: As per history of present illness and below otherwise all systems reviewed and negative. Past medical history: As per history of present illness and as reviewed below otherwise noncontributory. Surgical history: As per history of present illness and as reviewed below otherwise noncontributory. Social history: No reported history of drug or alcohol abuse. Family history: As per history of present illness and as reviewed below otherwise noncontributory. Physical exam: HEENT: Atraumatic, normocephalic, pupils reactive, negative for conjunctival pallor or scleral icterus, mucous membranes moist, throat clear, neck supple, nontender, trachea midline. Lungs: Clear to auscultation, breath sounds equal bilaterally, chest nontender. Heart: S1S2, regular, negative for clicks, rubs, or JVD. Abdomen: Soft, nondistended, nontender. Negative for masses or hepatosplenomegaly. Negative for costovertebral tenderness. Pelvis: Stable nontender. Genitourinary: Deferred. Rectal: Deferred. Extremities: Atraumatic, negative for cords or calf pain. Neurovascular unremarkable. Neuro: Awake, alert, oriented. Cranial nerves II through XII unremarkable. Cerebellum unremarkable. Motor and sensory unremarkable throughout. Exam nonfocal. Diagnostics: []Lab as below EKG Chest 1 view Therapeutics: []Liter normal saline bolus Aspirin 324 mg chewable I offered observation admission patient and family declined/refused Impression: []Anxiety GERD Amylase slightly elevated lipase is normal Chronic history of baseline Definitive disposition and diagnosis as appropriate pending reevaluation and review of above. Middle Chest Pain Score (Numeric/FACES): 2 - Related Data Allergies Allergy/AdvReac Type Severity Reaction Status Date / Time No Known Allergies Allergy Verified 01/11/17 15:07 Home Meds: Home Meds Albuterol Sulfate [Proair Hfa] 2 inh IH Q4H PRN 01/03/17 [History] LORazepam 0.5 mg PO TID PRN 01/03/17 [History] Omeprazole 20 mg PO ACBREAKFAST 01/03/17 [History] Tiotropium [place] [Spiriva Respimat] 1 inh IH DAILY 01/03/17 [History] Past Medical History - Past Health History Medical/Surgical History: Denies Medical/Surgical History HEENT History: Reports: Impaired Vision, Other (See Below) Other HEENT History: wears glasses Cardiovascular History: Reports: None Respiratory History: Reports: COPD, SOB Gastrointestinal History: Reports: GERD Genitourinary History: Reports: Chronic Renal Insuffiency Psychiatric History: Reports: Anxiety - Past Surgical History HEENT Surgical History: Reports: None Respiratory Surgical History: Reports: None GI Surgical History: Reports: None Social & Family History - Family History Family Medical History: Noncontributory - Tobacco Use Smoking Status *Q: Former Smoker Used Tobacco, but Quit: Yes Month Tobacco Last Used: "10 years ago" - Caffeine Use Caffeine Use: Reports: None - Recreational Drug Use Recreational Drug Use: No - Living Situation & Occupation Living situation: Reports: Occupation: Retired ED ROS GENERAL - Review of Systems Review Of Systems: ROS reveals no pertinent complaints other than HPI. ED EXAM, GENERAL - Physical Exam Exam: See Below Course - Vital Signs Last Recorded V/S: Last Vital Signs Temp 36.2 C 01/11/17 15:05 Pulse 98 01/11/17 15:05 Resp 25 H 01/11/17 15:05 BP 136/85 01/11/17 15:05 Pulse Ox 97 01/11/17 15:05 - Orders/Labs/Meds Orders: Active Orders 24 hr Category Date Time Status EKG Documentation Completion [RC] STAT Care 01/11/17 15:06 Active UA W/MICROSCOPIC [URIN] Stat Lab 01/11/17 15:04 Uncollected Sodium Chloride 0.9% [Normal Saline] 1,000 ml Med 01/11/17 15:15 Active IV STAT Medication Orders Sodium Chloride (Normal Saline) 1,000 mls @ 125 mls/hr IV STAT DAVID Last Admin: 01/11/17 15:17 Dose: 125 mls/hr Labs: Laboratory Tests 01/11/17 01/11/17 Range/Units 15:10 15:10 WBC 5.87 (4.0-11.0) K/uL RBC 4.67 (4.50-5.90) M/uL Hgb 13.5 (13.0-17.0) g/dL Hct 39.2 (38.0-50.0) % MCV 83.9 (80.0-98.0) fL MCH 28.9 (27.0-32.0) pg MCHC 34.4 (31.0-37.0) g/dL RDW Std Deviation 42.8 (28.0-62.0) fl RDW Coeff of Asif 14 (11.0-15.0) % Plt Count 235 (150-400) K/uL MPV 9.50 (7.40-12.00) fL Neut % (Auto) 65.7 (48.0-80.0) % Lymph % (Auto) 22.5 (16.0-40.0) % [place] % (Auto) 8.0 (0.0-15.0) % Eos % (Auto) 3.1 (0.0-7.0) % Baso % (Auto) 0.7 (0.0-1.5) % Neut # (Auto) 3.9 (1.4-5.7) K/uL Lymph # (Auto) 1.3 (0.6-2.4) K/uL [place] # (Auto) 0.5 (0.0-0.8) K/uL Eos # (Auto) 0.2 (0.0-0.7) K/uL Baso # (Auto) 0.0 (0.0-0.1) K/uL Sodium 140 (136-146) mmol/L Potassium 4.1 (3.5-5.1) mmol/L Chloride 112 H (98-110) mmol/L Carbon Dioxide 16 L (21-31) mmol/L BUN 14 (6.0-23.0) mg/dL Creatinine 1.5 (0.6-1.5) mg/dL Est Cr Clr Drug Dosing 38.89 mL/min Estimated GFR (MDRD) 45.0 ml/min Glucose 104 (60-110) mg/dL Calcium 9.1 (8.8-10.8) mg/dL Total Bilirubin 0.9 (0.1-1.5) mg/dL AST 20 (5-40) IU/L ALT 21 (8-54) IU/L Alkaline Phosphatase 64 (40-150) Troponin I < 0.10 (0.0-0.29) NG/ML Total Protein 6.9 (6.0-8.0) g/dL Albumin 3.9 (3.4-4.8) g/dL Globulin 3.0 (2.0-3.5) g/dL Albumin/Globulin Ratio 1.3 (1.3-2.8) Amylase 113 H (10-90) U/L Lipase 58 (7-80) U/L Meds: Medications Generic Name Dose Route Start Last Admin Trade Name Freq PRN Reason Stop Dose Admin Sodium Chloride 1,000 mls @ 125 mls/hr 01/11/17 15:15 01/11/17 15:17 Normal Saline IV 125 mls/hr STAT DAVID Administration Discontinued Medications Generic Name Dose Route Start Last Admin Trade Name Freq PRN Reason Stop Dose Admin Aspirin 324 mg 01/11/17 15:06 01/11/17 15:17 Aspirin PO 01/11/17 15:07 324 mg ONETIME ONE Administration Departure - Departure Time of Disposition: 16:09 Disposition: Home, Self-Care 01 Condition: Good Clinical Impression: GERD (gastroesophageal reflux disease), Anxiety about health - Discharge Information Referrals: Ritchie Parsons [Primary Care Provider] - Forms: ED Department Discharge Additional Instructions: Continue current medications Return if symptoms persist or worsen or new concerning symptoms develop Follow-up with primary care as scheduled The following information is given to patients seen in the emergency department who are being discharged to home. This information is to outline your options for follow-up care. We provide all patients seen in our emergency department with a follow-up referral. The need for follow-up, as well as the timing and circumstances, are variable depending upon the specifics of your emergency department visit. If you don't have a primary care physician on staff, we will provide you with a referral. We always advise you to contact your personal physician following an emergency department visit to inform them of the circumstance of the visit and for follow-up with them and/or the need for any referrals to a consulting specialist. The emergency department will also refer you to a specialist when appropriate. This referral assures that you have the opportunity for follow-up care with a specialist. All of these measure are taken in an effort to provide you with optimal care, which includes your follow-up. Under all circumstances we always encourage you to contact your private physician who remains a resource for coordinating your care. When calling for follow-up care, please make the office aware that this follow-up is from your recent emergency room visit. If for any reason you are refused follow-up, please contact the [facility] emergency department at and asked to speak to the emergency department charge nurse. - My Orders Last 24 Hours: My Active Orders 01/11/17 15:04 UA W/MICROSCOPIC [URIN] Stat 01/11/17 15:06 EKG Documentation Completion [RC] STAT 01/11/17 15:15 Sodium Chloride 0.9% [Normal Saline] 1,000 ml IV STAT - Assessment/Plan Last 24 Hours: My Active Orders 01/11/17 15:04 UA W/MICROSCOPIC [URIN] Stat 01/11/17 15:06 EKG Documentation Completion [RC] STAT 01/11/17 15:15 Sodium Chloride 0.9% [Normal Saline] 1,000 ml IV STAT
--- NOTE | 2017-01-11 16:07 | CR ---
EXAMINATION: Portable chest radiograph. HISTORY: Shortness of breath. FINDINGS: The trachea is midline. The cardiomediastinal silhouette is within normal limits. No pulmonary infilt rates, effusions or pneumothorax. Mild chronic interstitial prominence. Biapical scarring is noted. Osseous structures appear unremarkable. IMPRESSION: No acute cardiopulmonary process.
== END 2017-01-11 16:35 | disposition home or self-care (01) ==
LOC: MW.ED 15:01
DX: K21.9 Gastro-esophageal reflux disease without esophagitis (principal); F41.9 Anxiety disorder, unspecified; N18.9 Chronic kidney disease, unspecified; J44.9 Chronic obstructive pulmonary disease, unspecified; Z87.891 Personal history of nicotine dependence; Z79.899 Other long term (current) drug therapy; R13.10 Dysphagia, unspecified; N17.9 Acute kidney failure, unspecified
CPT/HCPCS: 36415; 71010; 80053; 81001; 82150; 83690; 84484; 85025; 93005; 96360; 99285; A9270; G0463; J7040; 99283

== ENCOUNTER 2017-05-21 17:10 | Emergency (ER) | payer MEDICARE, BC ==
--- NOTE | 2017-05-21 17:57 | EDM.PDOC ---
ED HPI GENERAL MEDICAL PROBLEM - General Chief Complaint: General Stated Complaint: FALL Time Seen by Provider: 05/21/17 17:49 Source of Information: Reports: Patient, Family History Limitations: Reports: No Limitations - History of Present Illness INITIAL COMMENTS - FREE TEXT/NARRATIVE: HISTORY AND PHYSICAL: History of present illness: Patient is an 81-year-old male who presents to the emergency room with complaints of left wrist/forearm pain and left hip pain with ambulation. States he was walking on his deck when he slipped on some ice and hit the ground on his left side. Denies hitting his head or any loss of consciousness. Denies any headache, change in vision, chest pain, SOB, or fever/chills. Denies any abdominal pain, nausea, vomiting or diarrhea. History of COPD, GERD, and anxiety. Takes a baby aspirin daily, no anticoagulants. Lives at home alone, with . Review of systems: As per history of present illness and below otherwise all systems reviewed and negative. Past medical history: As per history of present illness and as reviewed below otherwise noncontributory. Surgical history: As per history of present illness and as reviewed below otherwise noncontributory. Social history: No reported history of drug or alcohol abuse. Family history: As per history of present illness and as reviewed below otherwise noncontributory. Physical exam: General: well-developed and well-nourished 81-year-old male. Alert and oriented. Nontoxic appearing and in no acute distress. HEENT: Atraumatic, normocephalic, pupils reactive, negative for conjunctival pallor or scleral icterus, mucous membranes moist, TM normal bilaterally, throat clear, neck supple, nontender, trachea midline. NO drooling or trismus. No meningeal signs. Lungs: Clear to auscultation, breath sounds equal bilaterally, chest nontender. Heart: S1S2, regular, negative for clicks, rubs, or JVD. Abdomen: Soft, nondistended, nontender. Negative for masses or hepatosplenomegaly. Negative for costovertebral tenderness. Pelvis: Stable nontender. Genitourinary: Deferred. Rectal: Deferred. Extremities: Moves all extremities per self, pain to left hip with weight bearing (although non-tender with palpation). Soft tissues swelling noted left forearm, pain with palpation. Strong radial pulses bilaterally. Strong pedal pulses bilaterally. +CMS to upper and lower extremities. He is negative for cords or calf pain. Neurovascular unremarkable. C-spine/Back: No pinpoint vertebral tenderness upon palpation. No crepitus, deformities or obvious step-offs noted. No urinary or fecal incontinence. Denies any numbness or tingling to his lower extremities. Neuro: Awake, alert, oriented. Cranial nerves II through XII unremarkable. Cerebellum unremarkable. Motor and sensory unremarkable throughout. Exam nonfocal. Due to patient's age I would like to do a head CT (he is alert and orientated), otherwise will x-rays and EKG. X-ray shows an impacted distal radius fracture. Will place patient in a posterior splint with sling head CTand hip/pelvis x-ray are within normal limits. Did discuss with patient and family members today's findings. patient is requesting something for pain at this time. Due to age I will give him some tramadol. 1 tablet now and a prescription for 15 tablets at home. Education was given to patient and family members on medications and appropriate follow-up. They will call orthopedics tomorrow to arrange a follow-up appointment.Family is going to accompany the patient home this evening. No further questions. Diagnostics: EKG, xray pelvis/left hip, CT head, xray left forearm/wrist Therapeutics: Ice, 1/2 cast fiberglass splint with sling Impression: Impacted distal radius fracture, left Contusion status-post fall Plan: 1. X-ray shows a Radius fracture. Please call orthopedics (Dr. Elam) tomorrow for a follow-up appointment. Tell them you were seen in the emergency room and informed to make a follow up appointment for later this week or early next week. 2. Please keep the fiberglass splint on and use the sling during daytime. Rest, ice, elevate the extremity. Take the medication, Tramadol, as directed. May cause drowsiness, so do not take it when needing to be functioning at work. You may use Tylenol for breakthrough pain. 3. No heavy use/activity with the affected arm, until cleared by Orthopedics. 4. Follow up with Ortho as directed. Return to the ED as needed and as discussed. Definitive disposition and diagnosis as appropriate pending reevaluation and review of above. Onset: Today Left Arm Pain Score (Numeric/FACES): 8 - Related Data Allergies Allergy/AdvReac Type Severity Reaction Status Date / Time No Known Allergies Allergy Verified 05/21/17 17:51 Home Meds: Home Meds Albuterol Sulfate [Proair Hfa] 2 inh IH Q4H PRN 01/03/17 [History] LORazepam 0.5 mg PO TID PRN 01/03/17 [History] Omeprazole 20 mg PO ACBREAKFAST 01/03/17 [History] Tiotropium [place] [Spiriva Respimat] 1 inh IH DAILY 01/03/17 [History] Past Medical History - Past Health History Medical/Surgical History: Denies Medical/Surgical History HEENT History: Reports: Impaired Vision, Other (See Below) Other HEENT History: wears glasses Cardiovascular History: Reports: None Respiratory History: Reports: COPD, SOB Gastrointestinal History: Reports: GERD Genitourinary History: Reports: Chronic Renal Insuffiency Psychiatric History: Reports: Anxiety - Past Surgical History HEENT Surgical History: Reports: None Respiratory Surgical History: Reports: None GI Surgical History: Reports: None Social & Family History - Family History Family Medical History: Noncontributory - Tobacco Use Smoking Status *Q: Former Smoker Used Tobacco, but Quit: Yes Month Tobacco Last Used: "10 years ago" - Caffeine Use Caffeine Use: Reports: None - Recreational Drug Use Recreational Drug Use: No - Living Situation & Occupation Living situation: Reports: Occupation: Retired ED ROS GENERAL - Review of Systems Review Of Systems: ROS reveals no pertinent complaints other than HPI. ED EXAM, GENERAL - Physical Exam Exam: See Below (See dictation) Course - Vital Signs Last Recorded V/S: Last Vital Signs Temp 98.0 F 05/21/17 17:56 Pulse 88 05/21/17 17:56 Resp 18 05/21/17 17:56 BP 131/76 05/21/17 17:56 Pulse Ox 93 L 05/21/17 17:56 - Orders/Labs/Meds Orders: Active Orders 24 hr Category Date Time Status EKG Documentation Completion [RC] STAT Care 05/21/17 17:55 Active Forearm 2V Lt [CR] Stat Exams 05/21/17 17:55 Taken Head wo Cont [CT] Stat Exams 05/21/17 17:55 Taken Hip Min 1V w Pelvis Lt [CR] Stat Exams 05/21/17 17:58 Taken Wrist 2V Lt [CR] Stat Exams 05/21/17 17:55 Taken DME for Discharge [COMM] Stat Oth 05/21/17 19:11 Ordered Meds: Medications Discontinued Medications Generic Name Dose Route Start Last Admin Trade Name Linnea PRN Reason Stop Dose Admin Tramadol HCl 50 mg 05/21/17 19:11 Ultram PO 05/21/17 19:12 ONETIME ONE Departure - Departure Time of Disposition: 19:25 Disposition: Home, Self-Care 01 Clinical Impression: Distal radius fracture, left Qualifiers: Encounter type: initial encounter Fracture type: closed Fracture morphology: other fracture Qualified Code(s): S52.592A - Other fractures of lower end of left radius, initial encounter for closed fracture Contusion of hip, left Qualifiers: Encounter type: initial encounter Qualified Code(s): S70.02XA - Contusion of left hip, initial encounter - Discharge Information Referrals: PCP,None [Primary Care Provider] - Forms: ED Department Discharge Additional Instructions: My general discharge The following information is given to patients seen in the emergency department who are being discharged to home. This information is to outline your options for follow-up care. We provide all patients seen in our emergency department with a follow-up referral. The need for follow-up, as well as the timing and circumstances, are variable depending upon the specifics of your emergency department visit. If you don't have a primary care physician on staff, we will provide you with a referral. We always advise you to contact your personal physician following an emergency department visit to inform them of the circumstance of the visit and for follow-up with them and/or the need for any referrals to a consulting specialist. The emergency department will also refer you to a specialist when appropriate. This referral assures that you have the opportunity for follow-up care with a specialist. All of these measure are taken in an effort to provide you with optimal care, which includes your follow-up. Under all circumstances we always encourage you to contact your private physician who remains a resource for coordinating your care. When calling for follow-up care, please make the office aware that this follow-up is from your recent emergency room visit. If for any reason you are refused follow-up, please contact the [facility] Emergency Department at and asked to speak to the emergency department charge nurse. [facility] Professional Building [address] [place] [address], [address] [place] [address] 1. X-ray shows a Radius fracture. Please call orthopedics (Dr. Elam) tomorrow for a follow-up appointment. Tell them you were seen in the emergency room and informed to make a follow up appointment for later this week or early next week. 2. Please keep the fiberglass splint on and use the sling during daytime. Rest, ice, elevate the extremity. Take the medication, Tramadol, as directed. May cause drowsiness, so do not take it when needing to be functioning at work. You may use Tylenol for breakthrough pain. 3. No heavy use/activity with the affected arm, until cleared by Orthopedics. 4. Follow up with Ortho as directed. Return to the ED as needed and as discussed. - My Orders Last 24 Hours: My Active Orders 05/21/17 17:55 EKG Documentation Completion [RC] STAT Forearm 2V Lt [CR] Stat Head wo Cont [CT] Stat Wrist 2V Lt [CR] Stat 05/21/17 17:58 Hip Min 1V w Pelvis Lt [CR] Stat 05/21/17 19:11 DME for Discharge [COMM] Stat - Assessment/Plan Last 24 Hours: My Active Orders 05/21/17 17:55 EKG Documentation Completion [RC] STAT Forearm 2V Lt [CR] Stat Head wo Cont [CT] Stat Wrist 2V Lt [CR] Stat 05/21/17 17:58 Hip Min 1V w Pelvis Lt [CR] Stat 05/21/17 19:11 DME for Discharge [COMM] Stat
[2017-05-21] MEDS ORDERED: traMADol 50 MG Tab PO ONE (19:11)
--- NOTE | 2017-05-22 10:12 | CR ---
EXAM DATE: 05/21/17 PATIENT'S AGE: 81 Patient: ENRIKE JOHNS Facility: [place], [place] Site . Site : 1935 Study: XRay Extremity Left wrist [id number]/26/2018 6:49:48 PM Ordering Physician: Doctor Mao Final Report: INDICATION: Fall TECHNIQUE: 2 views left wrist COMPARISON: None FINDINGS: Bones: Impacted distal radius fracture. Joint spaces: Degenerative changes carpal metacarpal joint space of the thumb. Soft tissues: Unremarkable. IMPRESSION: Impacted distal radius fracture. Dictated by Nate Garcia MD @ 05/21/2017 7:01:42 PM Dictated by: Nate Garcia MD @ 05/21/2017 19:01:47 (Electronic Signature) Report Signed by Proxy. JOÃO
--- NOTE | 2017-05-22 10:13 | CR ---
EXAM DATE: 05/21/17 PATIENT'S AGE: 81 Patient: ENRIKE JOHNS Facility: [place], [place] Site . Site : 1935 Study: XRay Extremity Left forearm [id number]/26/2018 6:50:17 PM Ordering Physician: Doctor Mao Final Report: INDICATION: Fall TECHNIQUE: Two views left forearm COMPARISON: None FINDINGS: Bones: Impacted distal radius fracture. Joint spaces: Unremarkable. Soft tissues: Unremarkable. IMPRESSION: Impacted distal radius fracture. Dictated by Nate Garcia MD @ 05/21/2017 7:00:12 PM Dictated by: Nate Garcia MD @ 05/21/2017 19:00:17 (Electronic Signature) Report Signed by Proxy. JOÃO
--- NOTE | 2017-05-22 10:14 | CR ---
EXAM DATE: 05/21/17 PATIENT'S AGE: 81 Patient: ENRIKE JOHNS Facility: [place], [place] Site . Site : 1935 Study: XRay Hip Left w/pelvis [id number]/26/2018 6:50:39 PM Ordering Physician: Doctor Mao Final Report: INDICATION: Fall TECHNIQUE: AP pelvis and single view left hip COMPARISON: None FINDINGS: Bones: Alignment is normal. No fractures or bone lesions. Joint spaces: Unremarkable. Soft tissues: Unremarkable. IMPRESSION: Negative. Dictated by Nate Garcia MD @ 05/21/2017 7:08:09 PM Dictated by: Nate Garcia MD @ 05/21/2017 19:09:08 (Electronic Signature) Report Signed by Proxy. JOÃO
--- NOTE | 2017-05-22 10:16 | CT ---
EXAM DATE: 05/21/17 PATIENT'S AGE: 81 Patient: ENRIKE JOHNS Facility: [place], [place] Site . Site : 1935 Study: CT Head [id number]/26/2018 7:00:46 PM Ordering Physician: Doctor Mao Final Report: INDICATION: Fall TECHNIQUE: CT head without contrast. COMPARISON: 06/30/2016. FINDINGS: CSF spaces: Within normal limits for age. Brain parenchyma: The zimmer-white differentiation is normal. No sign of mass, hemorrhage, or midline shift. Diffuse volume loss. Skull base and calvarium: The visualized paranasal sinuses and mastoid air cells demonstrate no acute or significant findings. The visualized orbits are grossly unremarkable. No skull fractures. L IMPRESSION: Unremarkable noncontrast head CT. Dictated by Nate Garcia MD @ 05/21/2017 7:05:57 PM Dictated by: Nate Garcia MD @ 05/21/2017 19:06:03 (Electronic Signature) Report Signed by Proxy. JOÃO
== END 2017-05-21 19:40 | disposition home or self-care (01) ==
LOC: MW.ED 17:10
DX: S52.592A Other fractures of lower end of left radius, initial encounter for closed fracture (principal); S70.02XA Contusion of left hip, initial encounter; N18.9 Chronic kidney disease, unspecified; J44.9 Chronic obstructive pulmonary disease, unspecified; K21.9 Gastro-esophageal reflux disease without esophagitis; F41.9 Anxiety disorder, unspecified; Z87.891 Personal history of nicotine dependence; W00.0XXA Fall on same level due to ice and snow, initial encounter
CPT/HCPCS: 29125; 70450; 73090; 73100; 73501; 99284; A4566; A9270

== ENCOUNTER 2017-06-27 06:58 | Emergency (ER) | payer MEDICARE, BC ==
[2017-06-27] MEDS ORDERED: Sodium Chloride 0.9% 10 ML Syringe FLUSH PRN (07:12)
[2017-06-27] MEDS ORDERED: Sodium Chloride 0.9% 2.5 ML Syringe FLUSH PRN (07:12)
--- NOTE | 2017-06-27 07:13 | EDM.PDOC ---
ED HPI GENERAL MEDICAL PROBLEM - General Chief Complaint: Upper Extremity Injury/Pain Stated Complaint: CUT ON UPPER RIGHT ARM Time Seen by Provider: 06/27/17 07:00 Source of Information: Reports: Patient History Limitations: Reports: No Limitations - History of Present Illness INITIAL COMMENTS - FREE TEXT/NARRATIVE: History of present illness: []Patient fell this morning while getting out of bed. His son notes that it was more likely in the bathroom and she saw bloodstains on the hallway wall, patient states he may have hit his head but denies a headache or vomiting. Patient has a laceration on his right elbow, an abrasion on his right shoulder denies any other pain or injuries. He has not had any recent illnesses and states that he is eating his usual amount which is not very much. Review of systems: As per history of present illness and below otherwise all systems reviewed and negative. Past medical history: As per history of present illness and as reviewed below otherwise noncontributory. Surgical history: As per history of present illness and as reviewed below otherwise noncontributory. Social history: No reported history of drug or alcohol abuse. Family history: As per history of present illness and as reviewed below otherwise noncontributory. Physical exam: General: Well developed, well nourished in NAD HEENT: Atraumatic, normocephalic, pupils reactive, negative for conjunctival pallor or scleral icterus, mucous membranes moist, throat clear, neck supple, nontender, trachea midline. Lungs: Clear to auscultation, breath sounds equal bilaterally, chest nontender. Heart: S1S2, regular, negative for clicks, rubs, or JVD. Abdomen: Soft, nondistended, nontender. Negative for masses or hepatosplenomegaly. Negative for costovertebral tenderness. Pelvis: Stable nontender. Genitourinary: Deferred. Rectal: Deferred. Extremities: Large laceration on his right elbow without active bleeding, full range of motion his right upper extremity including shoulder, elbow and wrist . Small 2 cm Abrasion over his right shoulder and skin tear on his proximal forearm approximately 1 cm Neurovascular unremarkable. Neuro: Awake, alert, oriented. Cranial nerves II through XII unremarkable. Cerebellum unremarkable. Motor and sensory unremarkable throughout. Exam nonfocal. Diagnostics: []Head negative, CBC negative chemistry negative urine negative Therapeutics: []Suture. See procedure note Impression: []Follow, right shoulder abrasion, right elbow laceration with skin tear, right forearm skin tear Plan: []Tylenol for pain sutures out in 10 days, follow-up with primary care return if symptoms Definitive disposition and diagnosis as appropriate pending reevaluation and review of above. right elbow Pain Score (Numeric/FACES): 5 - Related Data Allergies Allergy/AdvReac Type Severity Reaction Status Date / Time No Known Allergies Allergy Verified 05/21/17 17:51 Home Meds: Home Meds Albuterol Sulfate [Proair Hfa] 2 inh IH Q4H PRN 01/03/17 [History] LORazepam 0.5 mg PO TID PRN 01/03/17 [History] Tiotropium [place] [Spiriva Respimat] 1 inh IH DAILY 01/03/17 [History] Past Medical History - Past Health History Medical/Surgical History: Denies Medical/Surgical History HEENT History: Reports: Impaired Vision, Other (See Below) Other HEENT History: wears glasses Cardiovascular History: Reports: None Respiratory History: Reports: COPD, SOB Gastrointestinal History: Reports: GERD Genitourinary History: Reports: Chronic Renal Insuffiency Psychiatric History: Reports: Anxiety - Past Surgical History HEENT Surgical History: Reports: None Respiratory Surgical History: Reports: None GI Surgical History: Reports: None Social & Family History - Family History Family Medical History: Noncontributory - Tobacco Use Smoking Status *Q: Former Smoker Used Tobacco, but Quit: Yes Month/Year Tobacco Last Used: "10 years ago" Second Hand Smoke Exposure: No - Caffeine Use Caffeine Use: Reports: None - Recreational Drug Use Recreational Drug Use: No - Living Situation & Occupation Living situation: Reports: Occupation: Retired Review of Systems - Review of Systems Review Of Systems: See Below (See history of present illness) ED EXAM, GENERAL - Physical Exam Exam: See Below (See history of present illness) ED TRAUMA EXTREMITY PROCEDURES - Laceration/Wound Repair Right Elbow Lac/Wound Length In cm: 6 Appearance: Subcutaneous Distal NVT: Neuro & Vascular Intact Anesthetic Type: Local Local Anesthesia - Lidocaine (Xylocaine): 1% Plain Local Anesthesia - Bupivicaine (Marcaine): 0.5% Plain Local Anesthetic Volume: 5cc Skin Prep: Saline Closed With: Sutures Suture Size: 4-0 Repaired With: Vicryl Drain Placement: No Sterile Dressing Applied: Nurse Tetanus Status Addressed: Yes Complications: No Course - Vital Signs Last Recorded V/S: Last Vital Signs Temp 97.9 F 06/27/17 09:32 Pulse 76 06/27/17 09:32 Resp 16 06/27/17 09:32 BP 128/85 06/27/17 09:32 Pulse Ox 98 06/27/17 09:32 - Orders/Labs/Meds Orders: Active Orders 24 hr Category Date Time Status EKG Documentation Completion [RC] STAT Care 06/27/17 07:12 Active Vaccines to be Administered [RC] PER UNIT ROUTINE Care 06/27/17 07:33 Active UA W/MICROSCOPIC [URIN] Stat Lab 06/27/17 09:39 Ordered Sodium Chloride 0.9% [Saline Flush] Med 06/27/17 07:12 Active 10 ml FLUSH ASDIRECTED PRN Sodium Chloride 0.9% [Saline Flush] Med 06/27/17 07:12 Active 2.5 ml FLUSH ASDIRECTED PRN Saline Lock Insert [OM.PC] Stat Oth 06/27/17 07:12 Ordered Medication Orders Sodium Chloride (Saline Flush) 10 ml FLUSH ASDIRECTED PRN PRN Reason: Keep Vein Open Sodium Chloride (Saline Flush) 2.5 ml FLUSH ASDIRECTED PRN PRN Reason: Keep Vein Open Labs: Laboratory Tests 06/27/17 06/27/17 06/27/17 Range/Units 07:20 07:20 09:39 WBC 6.14 (4.0-11.0) K/uL RBC 4.48 L (4.50-5.90) M/uL Hgb 12.3 L (13.0-17.0) g/dL Hct 38.0 (38.0-50.0) % MCV 84.8 (80.0-98.0) fL MCH 27.5 (27.0-32.0) pg MCHC 32.4 (31.0-37.0) g/dL RDW Std Deviation 42.7 (28.0-62.0) fl RDW Coeff of Asif 14 (11.0-15.0) % Plt Count 287 (150-400) K/uL MPV 9.00 (7.40-12.00) fL Neut % (Auto) 64.5 (48.0-80.0) % Lymph % (Auto) 19.9 (16.0-40.0) % Gaston % (Auto) 9.4 (0.0-15.0) % Eos % (Auto) 5.4 (0.0-7.0) % Baso % (Auto) 0.8 (0.0-1.5) % Neut # (Auto) 4.0 (1.4-5.7) K/uL Lymph # (Auto) 1.2 (0.6-2.4) K/uL Gaston # (Auto) 0.6 (0.0-0.8) K/uL Eos # (Auto) 0.3 (0.0-0.7) K/uL Baso # (Auto) 0.1 (0.0-0.1) K/uL Nucleated RBC % 0.0 /100WBC Nucleated RBCs # 0 K/uL Sodium 143 (136-148) mmol/L Potassium 4.3 (3.5-5.1) mmol/L Chloride 108 H (98-107) mmol/L Carbon Dioxide 24.9 (21.0-32.0) mmol/L BUN 16 (7.0-18.0) mg/dL Creatinine 1.6 H (0.8-1.3) mg/dL Est Cr Clr Drug Dosing 37.17 mL/min Estimated GFR (MDRD) 41.7 ml/min Glucose 88 (74-106) mg/dL Calcium 8.6 (8.5-10.1) mg/dL Total Bilirubin 0.3 (0.2-1.0) mg/dL AST 19 (15-37) IU/L ALT 15 (14-63) IU/L Alkaline Phosphatase 176 H (46-116) U/L Troponin I < 0.050 (0.000-0.056) ng/mL Total Protein 7.0 (6.4-8.2) g/dL Albumin 3.3 L (3.4-5.0) g/dL Globulin 3.7 H (2.0-3.5) g/dL Albumin/Globulin Ratio 0.9 L (1.3-2.8) Urine Color YELLOW Urine Appearance CLEAR Urine pH 6.5 (5.0-8.0) Ur Specific [place] 1.015 (1.001-1.035) Urine Protein NEGATIVE (NEGATIVE) mg/dL Urine Glucose (UA) NEGATIVE (NEGATIVE) mg/dL Urine Ketones NEGATIVE (NEGATIVE) mg/dL Urine Occult Blood TRACE-INTACT (NEGATIVE) Urine Nitrite NEGATIVE (NEGATIVE) Urine Bilirubin NEGATIVE (NEGATIVE) Urine Urobilinogen 0.2 (<2.0) EU/dL Ur Leukocyte Esterase NEGATIVE (NEGATIVE) Urine RBC 1-2 (0-2/HPF) Urine WBC NONE SEEN (0-5/HPF) Ur Epithelial Cells RARE (NONE-FEW) Urine Bacteria RARE (NEGATIVE) Meds: Medications Generic Name Dose Route Start Last Admin Trade Name Freq PRN Reason Stop Dose Admin Sodium Chloride 10 ml 06/27/17 07:12 Saline Flush FLUSH ASDIRECTED PRN Keep Vein Open Sodium Chloride 2.5 ml 06/27/17 07:12 Saline Flush FLUSH ASDIRECTED PRN Keep Vein Open Discontinued Medications Generic Name Dose Route Start Last Admin Trade Name Freq PRN Reason Stop Dose Admin Bacitracin 1 dose 06/27/17 08:19 06/27/17 08:25 Bacitracin Oint 1 Gm TOP 06/27/17 08:20 1 dose ONETIME ONE Administration Bupivacaine HCl 10 ml 06/27/17 07:34 06/27/17 09:29 Sensorcaine-Mpf 0.5% INJECT 06/27/17 07:35 10 ml ONETIME ONE Administration Diphtheria/Tetanus/Acell Pertussis 0.5 ml 06/27/17 07:33 06/27/17 09:26 Adacel IM 06/27/17 07:34 0.5 ml .ONCE ONE Administration Sodium Chloride 500 mls @ 999 mls/hr 06/27/17 07:32 06/27/17 09:09 Normal Saline IV 06/27/17 08:02 Not Given .Bolus ONE Lidocaine HCl 20 ml 06/27/17 07:34 06/27/17 09:29 Xylocaine 1% INJECT 06/27/17 07:35 20 ml ONETIME ONE Administration Departure - Departure Time of Disposition: 10:12 Disposition: Home, Self-Care 01 Condition: Good Clinical Impression: Fall Qualifiers: Encounter type: initial encounter Qualified Code(s): W19.XXXA - Unspecified fall, initial encounter Elbow laceration Qualifiers: Encounter type: initial encounter Laterality: right Qualified Code(s): S51.011A - Laceration without foreign body of right elbow, initial encounter - Discharge Information Referrals: Adan Cooper MD [Primary Care Provider] - Forms: ED Department Discharge Additional Instructions: The following information is given to patients seen in the emergency department who are being discharged to home. This information is to outline your options for follow-up care. We provide all patients seen in our emergency department with a follow-up referral. The need for follow-up, as well as the timing and circumstances, are variable depending upon the specifics of your emergency department visit. If you don't have a primary care physician on staff, we will provide you with a referral. We always advise you to contact your personal physician following an emergency department visit to inform them of the circumstance of the visit and for follow-up with them and/or the need for any referrals to a consulting specialist. The emergency department will also refer you to a specialist when appropriate. This referral assures that you have the opportunity for follow-up care with a specialist. All of these measure are taken in an effort to provide you with optimal care, which includes your follow-up. Under all circumstances we always encourage you to contact your private physician who remains a resource for coordinating your care. When calling for follow-up care, please make the office aware that this follow-up is from your recent emergency room visit. If for any reason you are refused follow-up, please contact the [facility] Emergency Department at and asked to speak to the emergency department charge nurse. Tylenol for pain, increase fluids, follow-up with primary care, sutures out in 10 days. [facility] [address] [place] [id number] - My Orders Last 24 Hours: My Active Orders 06/27/17 07:12 EKG Documentation Completion [RC] STAT Sodium Chloride 0.9% [Saline Flush] 10 ml FLUSH ASDIRECTED PRN Sodium Chloride 0.9% [Saline Flush] 2.5 ml FLUSH ASDIRECTED PRN Saline Lock Insert [OM.PC] Stat 06/27/17 07:33 Vaccines to be Administered [RC] PER UNIT ROUTINE 06/27/17 09:39 UA W/MICROSCOPIC [URIN] Stat - Assessment/Plan Last 24 Hours: My Active Orders 06/27/17 07:12 EKG Documentation Completion [RC] STAT Sodium Chloride 0.9% [Saline Flush] 10 ml FLUSH ASDIRECTED PRN Sodium Chloride 0.9% [Saline Flush] 2.5 ml FLUSH ASDIRECTED PRN Saline Lock Insert [OM.PC] Stat 06/27/17 07:33 Vaccines to be Administered [RC] PER UNIT ROUTINE 06/27/17 09:39 UA W/MICROSCOPIC [URIN] Stat
[2017-06-27] MEDS ORDERED: Sodium Chloride 0.9% 500 ML IV ONE (07:32)
[2017-06-27] MEDS ORDERED: Diphtheria,Pertussis(Acell),Tetanus Vaccine 0.5 ML Syringe IM ONE (07:33)
[2017-06-27] MEDS ORDERED: Bupivacaine 0.5% 10 ML SDV INJECT ONE (07:34)
[2017-06-27] MEDS ORDERED: Lidocaine 1% 20 ML MDV INJECT ONE (07:34)
[2017-06-27] MEDS ORDERED: Bacitracin Oint 1 GM U/D Packet TOP ONE (08:19)
--- NOTE | 2017-06-27 08:56 | CT ---
EXAMINATION: Non contrast CT head. Coronal and sagittal reformats. HISTORY: Pain FINDINGS: No evidence of intra or extra axial hemorrhage, mass, midline shift, hydrocephalus or edema. Moderat e generalized atrophy is noted with periventricular and subcortical white matter hypodensities. No hypoattenuation changes in the major vascular territories to suggest acute infarct. No abnormal intracranial calcifications are detected. No evidence of substantial vascular calcificat ions. Paranasal sinuses and mastoid air cells are well aerated without substantial findings. Pituitary fossa appears unremarkable. Calvarium is intact. No evidence of skull fracture. IMPRESSION: 1. No acute intracranial findings. 2. Generalized atrophy and small vessel ischemic changes.
[2017-06-27 09:04] LABS: CHLORIDE,CL 108 mmol/L (98-107); SODIUM,NA 143 mmol/L (136-148)
--- NOTE | 2017-06-27 09:10 | CR ---
EXAMINATION: Right elbow HISTORY: Fall COMPARISON: None TECHNIQUE: 2 views FINDINGS/IMPRESSION: There is no acute osseous abnormality, dislocation, or fracture. Bone mineraliza tion and joint spaces are preserved. Mild dorsal soft tissue swelling without an underlying joint eff usion.
== END 2017-06-27 10:28 | disposition home or self-care (01) ==
LOC: MW.ED 06:58
DX: S51.011A Laceration without foreign body of right elbow, initial encounter (principal); S51.811A Laceration without foreign body of right forearm, initial encounter; N18.9 Chronic kidney disease, unspecified; Z23 Encounter for immunization; Z79.899 Other long term (current) drug therapy; Z87.891 Personal history of nicotine dependence; W19.XXXA Unspecified fall, initial encounter
CPT/HCPCS: 12002; 36415; 70450; 70450-26; 73070-26-RT; 73070-RT; 80053; 81001; 84484; 85025; 90471; 90715; 93005; 99284; 99285-25

== ENCOUNTER 2017-07-06 13:25 | Emergency (ER) | payer MEDICARE, BC ==
--- NOTE | 2017-07-06 14:21 | EDM.PDOC ---
ED HPI GENERAL MEDICAL PROBLEM - General Chief Complaint: Upper Extremity Injury/Pain Stated Complaint: STITCHES REMOVAL Time Seen by Provider: 07/06/17 14:20 Source of Information: Reports: Patient, Family History Limitations: Reports: No Limitations - History of Present Illness INITIAL COMMENTS - FREE TEXT/NARRATIVE: HISTORY AND PHYSICAL: History of present illness: Patient was seen in the emergency room approximately 10 days ago post fall. At that time he had a large laceration to his right elbow area. Initially presented today to the emergency room for suture removal. He is accompanied by his family members who state that he did fall yesterday on the affected elbow and they have noted some yellow/green drainage coming from the site. That he may have an infection and/or reinjured the elbow. Denies any fever, chills, chest pain or shortness of breath. Red streaking noted from the laceration site. Eyes any numbness or tingling. Has full range of motion without difficulty. Tetanus has been addressed and is up to date. Review of systems: As per history of present illness and below otherwise all systems reviewed and negative. Past medical history: As per history of present illness and as reviewed below otherwise noncontributory. Surgical history: As per history of present illness and as reviewed below otherwise noncontributory. Social history: No reported history of drug or alcohol abuse. Family history: As per history of present illness and as reviewed below otherwise noncontributory. Physical exam: General: Well-developed and well-nourished 82-year-old male. Alert and oriented. Nontoxic appearing and in no acute distress. HEENT: Atraumatic, normocephalic, pupils equal and reactive bilaterally, negative for conjunctival pallor or scleral icterus, mucous membranes moist, throat clear, neck supple, nontender, trachea midline. No drooling or trismus noted. No meningeal signs Lungs: Clear to auscultation, breath sounds equal bilaterally, chest nontender. Heart: S1S2, regular rate and rhythm without overt murmur Abdomen: Soft, nondistended, nontender. Negative for masses. Negative for costovertebral tenderness. Pelvis: Stable nontender. Genitourinary: Deferred. Rectal: Deferred. Skin: 11 cm healing "C" shaped laceration/skin tear noted to right elbow. Sutures are in-place. Light green drainage noted at the distal corner of the laceration. Mild errythema noted surrounding the laceration. Soft tissue swelling noted at the elbow (new). Otherwise intact, warm, dry. No lesions or rashes noted. Extremities: Atraumatic, negative for cords or calf pain. Neurovascular unremarkable. Neuro: Awake, alert, oriented. Cranial nerves II through XII unremarkable. Cerebellum unremarkable. Motor and sensory unremarkable throughout. Exam nonfocal. Notes: Sutures were removed from the laceration site. Is #1 suture that remains, I'm concerned if he bumps his elbow it may re-open the skin tear. I informed the family that this should get removed in 3-5 days. Please of bacitracin, nonstick , bulky dressing over the area. X-ray shows no acute fracture or dislocation. Soft tissue swelling is noted. Place the patient on Keflex 500 mg twice a day 10 days. End and symptoms were reviewed with the patient and family members who help care for him. Center standing and are agreeable to plan of care. They deny any further questions at this time. Diagnostics: Right elbow x-ray Therapeutics: Suture removal, bacitracin dressing Impression: Right elbow injury Laceration infection Plan: 1. Please take the antibiotic as prescribed. Continue to monitor for signs of worsening infection such as fever, red streaking going up the arm, increasing drainage. Keep the area clean and dry. Tylenol and/or Ibuprofen as needed for pain management. 2. Follow up with your primary caregiver in the next couple days. Return to the ED as needed and as discussed. Definitive disposition and diagnosis as appropriate pending reevaluation and review of above. Duration: Day(s): Location: Reports: Upper Extremity, Right - Related Data Allergies Allergy/AdvReac Type Severity Reaction Status Date / Time No Known Allergies Allergy Verified 07/06/17 13:41 Home Meds: Home Meds Albuterol Sulfate [Proair Hfa] 2 inh IH Q4H PRN 01/03/17 [History] LORazepam 0.5 mg PO TID PRN 01/03/17 [History] Tiotropium [place] [Spiriva Respimat] 1 inh IH DAILY 01/03/17 [History] Past Medical History - Past Health History Medical/Surgical History: Denies Medical/Surgical History HEENT History: Reports: Impaired Vision, Other (See Below) Other HEENT History: wears glasses Cardiovascular History: Reports: None Respiratory History: Reports: COPD, SOB Gastrointestinal History: Reports: GERD Genitourinary History: Reports: Chronic Renal Insuffiency Musculoskeletal History: Reports: None Neurological History: Reports: None Psychiatric History: Reports: Anxiety Endocrine/Metabolic History: Reports: None Hematologic History: Reports: None Immunologic History: Reports: None Oncologic (Cancer) History: Reports: None Dermatologic History: Reports: None - Infectious Disease History Infectious Disease History: Reports: Chicken Pox, Measles, Mumps - Past Surgical History HEENT Surgical History: Reports: None Respiratory Surgical History: Reports: None GI Surgical History: Reports: None Male Surgical History: Reports: None Endocrine Surgical History: Reports: None Neurological Surgical History: Reports: None Musculoskeletal Surgical History: Reports: None Oncologic Surgical History: Reports: None Dermatological Surgical History: Reports: None Social & Family History - Family History Family Medical History: Noncontributory - Tobacco Use Smoking Status *Q: Never Smoker Used Tobacco, but Quit: Yes Month/Year Tobacco Last Used: "10 years ago" Second Hand Smoke Exposure: No - Caffeine Use Caffeine Use: Reports: None - Recreational Drug Use Recreational Drug Use: No - Living Situation & Occupation Living situation: Reports: Occupation: Retired Review of Systems - Review of Systems Review Of Systems: ROS reveals no pertinent complaints other than HPI. ED EXAM, GENERAL - Physical Exam Exam: See Below (See dictation) Course - Vital Signs Last Recorded V/S: Last Vital Signs Temp 97.2 F 07/06/17 13:41 Pulse 88 07/06/17 13:41 Resp 18 07/06/17 13:41 BP 122/75 07/06/17 13:41 Pulse Ox 98 07/06/17 13:41 - Orders/Labs/Meds Orders: Active Orders 24 hr Category Date Time Status Communication Order [RC] STAT Care 07/06/17 14:29 Active Meds: Medications Discontinued Medications Generic Name Dose Route Start Last Admin Trade Name Linnea PRN Reason Stop Dose Admin Bacitracin 1 dose 07/06/17 14:29 07/06/17 15:02 Bacitracin Oint 1 Gm TOP 07/06/17 14:30 1 dose ONETIME ONE Administration Departure - Departure Time of Disposition: 14:46 Disposition: Home, Self-Care 01 Clinical Impression: Infected laceration Elbow injury Qualifiers: Encounter type: initial encounter Laterality: right Qualified Code(s): S59.901A - Unspecified injury of right elbow, initial encounter - Discharge Information Instructions: Wound Infection Referrals: PCP,None [Primary Care Provider] - Forms: ED Department Discharge Additional Instructions: The following information is given to patients seen in the emergency department who are being discharged to home. This information is to outline your options for follow-up care. We provide all patients seen in our emergency department with a follow-up referral. The need for follow-up, as well as the timing and circumstances, are variable depending upon the specifics of your emergency department visit. If you don't have a primary care physician on staff, we will provide you with a referral. We always advise you to contact your personal physician following an emergency department visit to inform them of the circumstance of the visit and for follow-up with them and/or the need for any referrals to a consulting specialist. The emergency department will also refer you to a specialist when appropriate. This referral assures that you have the opportunity for follow-up care with a specialist. All of these measure are taken in an effort to provide you with optimal care, which includes your follow-up. Under all circumstances we always encourage you to contact your private physician who remains a resource for coordinating your care. When calling for follow-up care, please make the office aware that this follow-up is from your recent emergency room visit. If for any reason you are refused follow-up, please contact the [facility] Emergency Department at and asked to speak to the emergency department charge nurse. [facility] [address] [place] [id number] 1. Please take the antibiotic as prescribed. Continue to monitor for signs of worsening infection such as fever, red streaking going up the arm, increasing drainage. Keep the area clean and dry. Tylenol and/or Ibuprofen as needed for pain management. 2. Follow up with your primary caregiver in the next couple days. Return to the ED as needed and as discussed. - My Orders Last 24 Hours: My Active Orders 07/06/17 14:29 Communication Order [RC] STAT - Assessment/Plan Last 24 Hours: My Active Orders 07/06/17 14:29 Communication Order [RC] STAT
[2017-07-06] MEDS ORDERED: Bacitracin Oint 1 GM U/D Packet TOP ONE (14:29)
--- NOTE | 2017-07-06 14:42 | CR ---
EXAMINATION: Right elbow HISTORY: Fall COMPARISON: 06/27/2017 TECHNIQUE: 2 views FINDINGS/IMPRESSION: There is no acute osseous abnormality, dislocation, or fracture. Mild dorsal sof t tissue swelling noted without an underlying joint effusion. Radiocapitellar alignment is preserved.
== END 2017-07-06 15:20 | disposition home or self-care (01) ==
LOC: MW.ED 13:25
DX: S51.011D Laceration without foreign body of right elbow, subsequent encounter (principal); N18.9 Chronic kidney disease, unspecified; Z79.899 Other long term (current) drug therapy; Z87.891 Personal history of nicotine dependence; W19.XXXD Unspecified fall, subsequent encounter
CPT/HCPCS: 73070-26-RT; 73070-RT; 99282; 99283

== ENCOUNTER 2017-07-29 18:26 | Emergency (ER) | payer MEDICARE, BC ==
--- NOTE | 2017-07-29 19:25 | EDM.PDOC ---
ED HPI GENERAL MEDICAL PROBLEM - General Chief Complaint: Upper Extremity Injury/Pain Stated Complaint: PT FELL AND HURT RT ARM Time Seen by Provider: 07/29/17 18:43 Source of Information: Reports: Patient, Family History Limitations: Reports: Other (Mention) - History of Present Illness INITIAL COMMENTS - FREE TEXT/NARRATIVE: HISTORY AND PHYSICAL: History of present illness: Jigar is an 82-year-old male here with his daughter for a right wrist injury. His been seen in the ED in the past for multiple falls. He lives at home with his . Daughter states that he was in his garden while his was inside cooking lunch. She states that he was found sitting in the grass holding his right wrist. Jigar states that he had fell and tried to catch himself with that hand. Review of systems: As per history of present illness and below otherwise all systems reviewed and negative. Past medical history: As per history of present illness and as reviewed below otherwise noncontributory. Surgical history: As per history of present illness and as reviewed below otherwise noncontributory. Social history: No reported history of drug or alcohol abuse. Family history: As per history of present illness and as reviewed below otherwise noncontributory. Physical exam: HEENT: Atraumatic, normocephalic, pupils reactive, negative for conjunctival pallor or scleral icterus, mucous membranes moist, throat clear, neck supple, nontender, trachea midline. Lungs: Clear to auscultation, breath sounds equal bilaterally, chest nontender. Heart: S1S2, regular, negative for clicks, rubs, or JVD. Abdomen: Soft, nondistended, nontender. Negative for masses or hepatosplenomegaly. Negative for costovertebral tenderness. Pelvis: Stable nontender. Genitourinary: Deferred. Rectal: Deferred. Extremities: Right wrist is slightly swollen with ecchymosis. Tender to palpation. Neurovascular unremarkable. Neuro: Awake, alert, oriented. Cranial nerves II through XII unremarkable. Cerebellum unremarkable. Motor and sensory unremarkable throughout. Exam nonfocal. Notes: Discussed with family about getting a head CT due to risk of bleed with fall and dementia. Family declines. Patient was discussed with Dr. Elam who has accepted to see patient in the clinic for follow-up. Diagnostics: [X-ray right wrist] Therapeutics: [Thumb spica splint] Impression: [Transverse distal radial fracture with extension into articular surface] Plan: [1. Splint and sling 2. Tylenol or Motrin as needed for pain 3. Follow-up with orthopedic provider as discussed 4. Return to ED as needed as discussed Definitive disposition and diagnosis as appropriate pending reevaluation and review of above. Onset: Today Duration: Hour(s): (4) right wrist Pain Score (Numeric/FACES): 4 - Related Data Allergies Allergy/AdvReac Type Severity Reaction Status Date / Time No Known Allergies Allergy Verified 07/29/17 18:52 Home Meds: Home Meds Albuterol Sulfate [Proair Hfa] 2 inh IH Q4H PRN 01/03/17 [History] LORazepam 0.5 mg PO QID PRN 01/03/17 [History] Aspirin 1 tab PO DAILY 07/29/17 [History] QUEtiapine [SEROquel] 0 tab PO DAILY 07/29/17 [History] Past Medical History - Past Health History Medical/Surgical History: Denies Medical/Surgical History HEENT History: Reports: Impaired Vision, Other (See Below) Other HEENT History: wears glasses Cardiovascular History: Reports: None Respiratory History: Reports: Asthma, COPD, SOB Gastrointestinal History: Reports: GERD Genitourinary History: Reports: Chronic Renal Insuffiency Musculoskeletal History: Reports: None Neurological History: Reports: None Psychiatric History: Reports: Anxiety, Dementia Endocrine/Metabolic History: Reports: None Hematologic History: Reports: None Immunologic History: Reports: None Oncologic (Cancer) History: Reports: None Dermatologic History: Reports: None - Infectious Disease History Infectious Disease History: Reports: Chicken Pox, Measles, Mumps - Past Surgical History HEENT Surgical History: Reports: None Respiratory Surgical History: Reports: None Male Surgical History: Reports: None Endocrine Surgical History: Reports: None Neurological Surgical History: Reports: None Musculoskeletal Surgical History: Reports: None Oncologic Surgical History: Reports: None Dermatological Surgical History: Reports: None Social & Family History - Family History Family Medical History: Noncontributory - Tobacco Use Smoking Status *Q: Never Smoker Used Tobacco, but Quit: Yes Month/Year Tobacco Last Used: "10 years ago" Second Hand Smoke Exposure: No - Caffeine Use Caffeine Use: Reports: None - Recreational Drug Use Recreational Drug Use: No - Living Situation & Occupation Living situation: Reports: Occupation: Retired Review of Systems - Review of Systems Review Of Systems: ROS reveals no pertinent complaints other than HPI. ED EXAM, GENERAL - Physical Exam Exam: See Below (See dictation) Course - Vital Signs Last Recorded V/S: Last Vital Signs Temp 36.1 C 07/29/17 18:45 Pulse 86 07/29/17 18:45 Resp 18 07/29/17 18:45 BP 114/77 07/29/17 18:45 Pulse Ox 94 L 07/29/17 18:45 - Orders/Labs/Meds Orders: Active Orders 24 hr Category Date Time Status Wrist 2V Rt [CR] Stat Exams 07/29/17 19:03 Taken Departure - Departure Time of Disposition: 19:56 Disposition: Home, Self-Care 01 Condition: Good Clinical Impression: Closed right radial fracture Qualifiers: Encounter type: initial encounter Radius location: distal - Discharge Information Referrals: PCP,None [Primary Care Provider] - Forms: ED Department Discharge Additional Instructions: The following information is given to patients seen in the emergency department who are being discharged to home. This information is to outline your options for follow-up care. We provide all patients seen in our emergency department with a follow-up referral. The need for follow-up, as well as the timing and circumstances, are variable depending upon the specifics of your emergency department visit. If you don't have a primary care physician on staff, we will provide you with a referral. We always advise you to contact your personal physician following an emergency department visit to inform them of the circumstance of the visit and for follow-up with them and/or the need for any referrals to a consulting specialist. The emergency department will also refer you to a specialist when appropriate. This referral assures that you have the opportunity for follow-up care with a specialist. All of these measure are taken in an effort to provide you with optimal care, which includes your follow-up. Under all circumstances we always encourage you to contact your private physician who remains a resource for coordinating your care. When calling for follow-up care, please make the office aware that this follow-up is from your recent emergency room visit. If for any reason you are refused follow-up, please contact the [facility] Emergency Department at and asked to speak to the emergency department charge nurse. [facility] [address], [address] [place] [address] 1. Tylenol or Motrin as needed for pain 2. Follow-up with orthopedic provider as discussed 3. Return to ED as needed as discussed - My Orders Last 24 Hours: My Active Orders 07/29/17 19:03 Wrist 2V Rt [CR] Stat - Assessment/Plan Last 24 Hours: My Active Orders 07/29/17 19:03 Wrist 2V Rt [CR] Stat
--- NOTE | 2017-07-31 11:32 | CR ---
EXAM DATE: 07/29/17 PATIENT'S AGE: 82 Patient: ENRIKE JOHNS Facility: [place], [place] Site . Site : 1935 Study: XRay Extremity Right wrist [id number]/6/2018 7:13:55 PM Ordering Physician: Doctor Mao Final Report: INDICATION: Fall TECHNIQUE: Two views right wrist COMPARISON: None FINDINGS: Bones: Transverse distal radius fracture with extension to the articular surface. Joint spaces: Degenerative changes carpal metacarpal joint space of the thumb. Soft tissues: Diffuse soft tissue edema. IMPRESSION: Transverse distal radius fracture with extension to articular surface. Adjacent soft tissue edema. Dictated by Nate Garcia MD @ 07/29/2017 7:47:40 PM Dictated by: Nate Garcia MD @ 07/29/2017 19:48:01 (Electronic Signature) Report Signed by Proxy. JOÃO
== END 2017-07-29 20:10 | disposition home or self-care (01) ==
LOC: MW.ED 18:26
DX: S52.501A Unspecified fracture of the lower end of right radius, initial encounter for closed fracture (principal); N18.9 Chronic kidney disease, unspecified; J44.9 Chronic obstructive pulmonary disease, unspecified; F41.9 Anxiety disorder, unspecified; Z79.899 Other long term (current) drug therapy; W18.30XA Fall on same level, unspecified, initial encounter; Y92.096 Garden or yard of other non-institutional residence as the place of occurrence of the external cause
CPT/HCPCS: 29125; 73100; 99283; A4566

== ENCOUNTER 2017-07-31 09:19 | Emergency (ER) | payer OTHER, MEDICARE, BC ==
[2017-07-31] MEDS ORDERED: diphenhydrAMINE 12.5 MG/5 ML Liquid 5 ML UD Cup PO ONE (09:43)
--- NOTE | 2017-07-31 10:21 | EDM.PDOC ---
ED HPI GENERAL MEDICAL PROBLEM - General Chief Complaint: Upper Extremity Injury/Pain Stated Complaint: RIGHT HAND SWOLLEN Time Seen by Provider: 07/31/17 09:30 Source of Information: Reports: Patient, Family History Limitations: Reports: No Limitations - History of Present Illness INITIAL COMMENTS - FREE TEXT/NARRATIVE: History of present illness: []Patient arrives with edema of his right hand. He broke his wrist last week and was put in a splint. He has not been compliant with elevation of sleep due to his confusion. Patient lives alone and was brought in by family. Review of systems: As per history of present illness and below otherwise all systems reviewed and negative. Past medical history: As per history of present illness and as reviewed below otherwise noncontributory. Surgical history: As per history of present illness and as reviewed below otherwise noncontributory. Social history: No reported history of drug or alcohol abuse. Family history: As per history of present illness and as reviewed below otherwise noncontributory. Physical exam: General: Well developed, well nourished in NAD HEENT: Atraumatic, normocephalic, pupils reactive, negative for conjunctival pallor or scleral icterus, mucous membranes moist, throat clear, neck supple, nontender, trachea midline. Lungs: Clear to auscultation, breath sounds equal bilaterally, chest nontender. Heart: S1S2, regular, negative for clicks, rubs, or JVD. Abdomen: Soft, nondistended, nontender. Negative for masses or hepatosplenomegaly. Negative for costovertebral tenderness. Pelvis: Stable nontender. Genitourinary: Deferred. Rectal: Deferred. Extremities: Right hand with dorsal edema and bluish discoloration, distal pulses are palpable and Refill is brisk, negative for cords or calf pain. Neurovascular unremarkable. Neuro: Awake, alert, oriented. Cranial nerves II through XII unremarkable. Cerebellum unremarkable. Motor and sensory unremarkable throughout. Exam nonfocal. Diagnostics: [] Therapeutics: []Replaced splint Impression: []Right wrist fracture with dependent edema Plan: []Elevate wrist as much as possible above the level of your heart follow-up with Dr. Cooper as scheduled Definitive disposition and diagnosis as appropriate pending reevaluation and review of above. - Related Data Allergies Allergy/AdvReac Type Severity Reaction Status Date / Time No Known Allergies Allergy Verified 07/31/17 09:22 Home Meds: Home Meds Albuterol Sulfate [Proair Hfa] 2 inh IH Q4H PRN 01/03/17 [History] LORazepam 0.5 mg PO QID PRN 01/03/17 [History] Aspirin 1 tab PO DAILY 07/29/17 [History] QUEtiapine [SEROquel] 0 tab PO DAILY 07/29/17 [History] Past Medical History - Past Health History Medical/Surgical History: Denies Medical/Surgical History HEENT History: Reports: Impaired Vision, Other (See Below) Other HEENT History: wears glasses Cardiovascular History: Reports: None Respiratory History: Reports: Asthma, COPD, SOB Gastrointestinal History: Reports: GERD Genitourinary History: Reports: Chronic Renal Insuffiency Musculoskeletal History: Reports: None Neurological History: Reports: None Psychiatric History: Reports: Anxiety, Dementia Endocrine/Metabolic History: Reports: None Hematologic History: Reports: None Immunologic History: Reports: None Oncologic (Cancer) History: Reports: None Dermatologic History: Reports: None - Infectious Disease History Infectious Disease History: Reports: Chicken Pox, Measles, Mumps - Past Surgical History HEENT Surgical History: Reports: None Respiratory Surgical History: Reports: None Male Surgical History: Reports: None Endocrine Surgical History: Reports: None Neurological Surgical History: Reports: None Musculoskeletal Surgical History: Reports: None Oncologic Surgical History: Reports: None Dermatological Surgical History: Reports: None Social & Family History - Family History Family Medical History: Noncontributory - Tobacco Use Smoking Status *Q: Never Smoker Used Tobacco, but Quit: Yes Month/Year Tobacco Last Used: "10 years ago" Second Hand Smoke Exposure: No - Caffeine Use Caffeine Use: Reports: None - Recreational Drug Use Recreational Drug Use: No - Living Situation & Occupation Living situation: Reports: Occupation: Retired Review of Systems - Review of Systems Review Of Systems: See Below (See history of present illness) ED EXAM, GENERAL - Physical Exam Exam: See Below (See history of present illness) Course - Vital Signs Last Recorded V/S: Last Vital Signs Temp 97.6 F 07/31/17 09:23 Pulse 90 07/31/17 09:23 Resp 18 07/31/17 09:23 BP 123/94 H 07/31/17 09:23 Pulse Ox 99 07/31/17 09:23 - Orders/Labs/Meds Orders: Active Orders 24 hr Category Date Time Status Splinting [RC] ASDIRECTED Care 07/31/17 09:43 Active Meds: Medications Discontinued Medications Generic Name Dose Route Start Last Admin Trade Name Linnea PRN Reason Stop Dose Admin Diphenhydramine HCl 25 mg 07/31/17 09:43 Benadryl PO 07/31/17 09:44 STAT ONE Departure - Departure Time of Disposition: 10:20 Disposition: Home, Self-Care 01 Condition: Good Clinical Impression: Dependent edema - Discharge Information Referrals: PCP,Unknown [Primary Care Provider] - Additional Instructions: The following information is given to patients seen in the emergency department who are being discharged to home. This information is to outline your options for follow-up care. We provide all patients seen in our emergency department with a follow-up referral. The need for follow-up, as well as the timing and circumstances, are variable depending upon the specifics of your emergency department visit. If you don't have a primary care physician on staff, we will provide you with a referral. We always advise you to contact your personal physician following an emergency department visit to inform them of the circumstance of the visit and for follow-up with them and/or the need for any referrals to a consulting specialist. The emergency department will also refer you to a specialist when appropriate. This referral assures that you have the opportunity for follow-up care with a specialist. All of these measure are taken in an effort to provide you with optimal care, which includes your follow-up. Under all circumstances we always encourage you to contact your private physician who remains a resource for coordinating your care. When calling for follow-up care, please make the office aware that this follow-up is from your recent emergency room visit. If for any reason you are refused follow-up, please contact the [facility] Emergency Department at and asked to speak to the emergency department charge nurse. Elevate right hand above the level of your heart as much as possible follow-up with Dr. Cooper as scheduled in 2 days. - My Orders Last 24 Hours: My Active Orders 07/31/17 09:43 Splinting [RC] ASDIRECTED - Assessment/Plan Last 24 Hours: My Active Orders 07/31/17 09:43 Splinting [RC] ASDIRECTED
== END 2017-07-31 10:52 | disposition home or self-care (01) ==
LOC: MW.ED 09:19
DX: S52.501A Unspecified fracture of the lower end of right radius, initial encounter for closed fracture (principal); J44.9 Chronic obstructive pulmonary disease, unspecified; K21.9 Gastro-esophageal reflux disease without esophagitis; N18.9 Chronic kidney disease, unspecified; Z79.82 Long term (current) use of aspirin; Z79.899 Other long term (current) drug therapy; W18.30XA Fall on same level, unspecified, initial encounter
CPT/HCPCS: 99283; A9270; 29125; 99282

== ENCOUNTER 2017-08-01 21:11 | Emergency (ER) | payer MEDICARE, BC ==
[2017-08-01] MEDS ORDERED: QUEtiapine 25 MG Tab PO ONE (21:32)
--- NOTE | 2017-08-01 21:52 | EDM.PDOC ---
ED HPI GENERAL MEDICAL PROBLEM - General Chief Complaint: Upper Extremity Injury/Pain Stated Complaint: UNK Time Seen by Provider: 08/01/17 21:47 Source of Information: Reports: Patient, Family History Limitations: Reports: No Limitations - History of Present Illness INITIAL COMMENTS - FREE TEXT/NARRATIVE: HISTORY AND PHYSICAL: []82-year-old male brought in by his family with concerns over his wrist fracture and his dementia History of Present Illness: []For the last 3 days this patient has been having increased dementia and behavioral problems at home He currently is on Seroquel once a day Review of Systems: As per history of present illness and below otherwise all systems reviewed and negative. Past medical history: As per history of present illness and as reviewed below otherwise noncontributory. Surgical history: As per history of present illness and as reviewed below otherwise noncontributory. Social history: No reported history of drug or alcohol abuse. Family history: As per history of present illness and as reviewed below otherwise noncontributory. Physical exam: Alert gentleman who is cooperative in the exam room HEENT: Atraumatic, normocehpalic, pupils reactive, negative for conjunctival pallor or scleral icterus, mucous membranes moist, throat clear, neck supple, nontender, trachea midline. Lungs: Clear to auscultation, breath sounds equal bilaterally, chest non tender. Heart: S1S2, regular, negative for clicks, rubs, or JVD. Abdomen: Soft, nondistended, nontender. Negative for masses or hepatossplenmegaly. Negative for costovertebral tenderness. Pelvis: Stable nontender. Genitourinary: Deferred. Rectal: Deferred Extremities: Atraumatic, negative for cords or calf pain. Ramo wrap is removed from his right wrist and there is a malformation of the wrist edema is present to the dorsum of his right hand. Cooperative during exam. Neurovascular unremarkable. Neuro: Awake, alert, oriented. Cranial nerves II through XII unremarkable. Cerebellum unremarkable. Motor and sensory unremarkable throughout. Exam nonfocal. Diagnostics: []X-ray right wrist Therapeutics: []Wrist splint/Velcro Seroquel Impression: []Wrist fracture Dementia Plan: []Discharge Follow-up with Dr. Cooper at appointment tomorrow to discuss the increasing dementia and difficulty with caring for your father Return to the emergency room as discussed and directed Recommend to increase her will to twice a day Definitive disposition and diagnosis as appropriate pending reevaluation and review of above. Onset: Sudden Duration: Day(s):, Getting Worse Location: Reports: Upper Extremity, Right - Related Data Allergies Allergy/AdvReac Type Severity Reaction Status Date / Time No Known Allergies Allergy Verified 07/31/17 09:22 Home Meds: Home Meds Albuterol Sulfate [Proair Hfa] 2 inh IH Q4H PRN 01/03/17 [History] LORazepam 0.5 mg PO QID PRN 01/03/17 [History] Aspirin 1 tab PO DAILY 07/29/17 [History] QUEtiapine [SEROquel] 0 tab PO DAILY 07/29/17 [History] Past Medical History - Past Health History Medical/Surgical History: Denies Medical/Surgical History HEENT History: Reports: Impaired Vision, Other (See Below) Other HEENT History: wears glasses Cardiovascular History: Reports: None Respiratory History: Reports: Asthma, COPD, SOB Gastrointestinal History: Reports: GERD Genitourinary History: Reports: Chronic Renal Insuffiency Musculoskeletal History: Reports: None Neurological History: Reports: None Psychiatric History: Reports: Anxiety, Dementia Endocrine/Metabolic History: Reports: None Hematologic History: Reports: None Immunologic History: Reports: None Oncologic (Cancer) History: Reports: None Dermatologic History: Reports: None - Infectious Disease History Infectious Disease History: Reports: Chicken Pox, Measles, Mumps - Past Surgical History HEENT Surgical History: Reports: None Respiratory Surgical History: Reports: None Male Surgical History: Reports: None Endocrine Surgical History: Reports: None Neurological Surgical History: Reports: None Musculoskeletal Surgical History: Reports: None Oncologic Surgical History: Reports: None Dermatological Surgical History: Reports: None Social & Family History - Family History Family Medical History: Noncontributory - Tobacco Use Smoking Status *Q: Never Smoker - Caffeine Use Caffeine Use: Reports: None - Recreational Drug Use Recreational Drug Use: No - Living Situation & Occupation Living situation: Reports: Occupation: Retired Review of Systems - Review of Systems Review Of Systems: ROS reveals no pertinent complaints other than HPI. ED EXAM, GENERAL - Physical Exam Exam: See Below (see dictation) Course - Vital Signs Last Recorded V/S: Last Vital Signs Temp 36.1 C 08/01/17 21:11 Pulse 104 H 08/01/17 21:11 Resp 18 08/01/17 21:11 BP 134/78 08/01/17 21:11 Pulse Ox 96 08/01/17 21:11 - Orders/Labs/Meds Orders: Active Orders 24 hr Category Date Time Status Wrist 2V Rt [CR] Stat Exams 08/01/17 21:28 Ordered Meds: Medications Discontinued Medications Generic Name Dose Route Start Last Admin Trade Name Freq PRN Reason Stop Dose Admin Quetiapine Fumarate 25 mg 08/01/17 21:32 Seroquel PO 08/01/17 21:33 ONETIME ONE Departure - Departure Time of Disposition: 21:54 Disposition: Home, Self-Care 01 Condition: Good Clinical Impression: Fracture of radius Qualifiers: Encounter type: subsequent encounter Radius location: distal Fracture type: closed Fracture morphology: unspecified fracture morphology - Discharge Information Instructions: Cast or Splint Care, Adult, [id number] Referrals: Adan Cooper MD [Primary Care Provider] - Additional Instructions: The following information is given to patients seen in the emergency department who are being discharged to home. This information is to outline your options for follow-up care. We provide all patients seen in our emergency department with a follow-up referral. The need for follow-up, as well as the timing and circumstances, are variable depending upon the specifics of your emergency department visit. If you don't have a primary care physician on staff, we will provide you with a referral. We always advise you to contact your personal physician following an emergency department visit to inform them of the circumstance of the visit and for follow-up with them and/or the need for any referrals to a consulting specialist. The emergency department will also refer you to a specialist when appropriate. This referral assures that you have the opportunity for followup care with a specialist. All of these measure are taken in an effort to provide you with optimal care, which includes your followup. Under all circumstances we always encourage you to contact your private physician who remains a resource for coordinating your care. When calling for followup care, please make the office aware that this follow-up is from your recent emergency room visit. If for any reason you are refused follow-up, please contact the [facility] emergency department at and asked to speak to the emergency department charge nurse. There is significant edema to the dorsum of his hand A Velcro cockup wrist splint has been applied to stabilize his wrist fracture Seroquel 25 mg by mouth in the emergency room Recommended to increase to twice daily with Seroquel 25 mg Follow up with Dr. Adan Cooper tomorrow as scheduled to discuss the increased dementia that is being seen by family. Turned to the emergency room as directed and discussed - My Orders Last 24 Hours: My Active Orders 08/01/17 21:28 Wrist 2V Rt [CR] Stat - Assessment/Plan Last 24 Hours: My Active Orders 08/01/17 21:28 Wrist 2V Rt [CR] Stat
--- NOTE | 2017-08-02 10:31 | CR ---
EXAM DATE: 08/01/17 PATIENT'S AGE: 82 Patient: ENRIKE JOHNS Facility: [facility] Site . Site : 1935 Study: XRay-Extremity Right WRIST [id number]/9/2018 9:48:59 PM Ordering Physician: Doctor Mao Final Report: INDICATION: Recent fall. Edema. TECHNIQUE: Right wrist, two views COMPARISON: 07/29/2017. FINDINGS: Impacted. , comminuted distal radius fracture with intra-articular extension, no change in alignment from 3 days prior. No new interval right wrist fracture. Degenerative changes of the 1st CMC joint. IMPRESSION: 1. No change in impacted, intra-articular distal right radius fracture. Moderate degree of right wrist soft tissue swelling. Dictated by Bar Vincent MD @ 08/01/2017 9:54:15 PM Dictated by: Bar Vincent MD @ 08/01/2017 21:54:20 Signed by: Bar Vincent MD @08/01/2017 9:54:20 PM (Electronic Signature) Report Signed by Proxy. JOÃO
== END 2017-08-01 22:16 | disposition home or self-care (01) ==
LOC: MW.ED 21:11
DX: S52.571D Other intraarticular fracture of lower end of right radius, subsequent encounter for closed fracture with routine healing (principal); F03.90 Unspecified dementia, unspecified severity, without behavioral disturbance, psychotic disturbance, mood disturbance, and anxiety; J44.9 Chronic obstructive pulmonary disease, unspecified; J45.909 Unspecified asthma, uncomplicated; N18.9 Chronic kidney disease, unspecified; Z79.899 Other long term (current) drug therapy; Z79.82 Long term (current) use of aspirin; X58.XXXD Exposure to other specified factors, subsequent encounter
CPT/HCPCS: 73100; 99283; A9270

== ENCOUNTER 2017-08-04 20:43 | Emergency (ER) | payer MEDICARE, BC ==
--- NOTE | 2017-08-04 21:18 | EDM.PDOC ---
ED HPI GENERAL MEDICAL PROBLEM - General Chief Complaint: Neurological Problem Stated Complaint: UNK Time Seen by Provider: 08/04/17 21:02 - History of Present Illness INITIAL COMMENTS - FREE TEXT/NARRATIVE: HISTORY AND PHYSICAL: History of present illness: The patient is an 82-year-old male with a history of COPD and GERD as well as dementia who presents with family after an episode of being angry and combative and they sought evaluation. The patient was here for similar symptoms on August 01 and actually hit a wall at that time and had a swollen hand with a fracture and according to the son he is getting a cast placed on for that hand care. The swelling and the pain in the hand has improved. According to the son he has no systemic complaints and he is eating and drinking normally and has had no fevers. Tonight the patient again became very combative and angry but did not hit anything and they all EMS to bring him here and now since arrival he has been calm and is cooperative and interactive with me. He says that he has no complaints of pain only little soreness at his right knee where he fell several days ago but there've been no new falls. The son is concerned but tells me that the patient saw Dr. Cooper on Sunday and he adjusted his dose of Seroquel and said that he would continue increasing the dose slowly to try to control the symptoms. Discussion was had about placement at [facility] and rehabilitation dementia unit but he says that his mother is very resistant to that. Review of systems: As per history of present illness and below otherwise all systems reviewed and negative. Past medical history: As per history of present illness and as reviewed below otherwise noncontributory. Surgical history: As per history of present illness and as reviewed below otherwise noncontributory. Social history: No reported history of drug or alcohol abuse. Family history: As per history of present illness and as reviewed below otherwise noncontributory. Physical exam: General: Well-developed well-nourished thin man who is nontoxic and vital signs were noted by me. He is intermittently agitated depending on the question situation but he is very cooperative with me HEENT: Atraumatic, normocephalic, pupils reactive, negative for conjunctival pallor or scleral icterus, mucous membranes moist, throat clear, neck supple, nontender, trachea midline. Poor dentition Lungs: Clear to auscultation, breath sounds equal bilaterally, chest nontender. No worker breathing or sensory muscle use Heart: S1S2, regular rhythm slightly tachycardic rate on my evaluation, negative for clicks, rubs, or JVD. Abdomen: Soft, nondistended, nontender. Negative for masses or hepatosplenomegaly. Hypoactive bowel sounds Pelvis: Stable nontender. Genitourinary: Deferred. Rectal: Deferred. Extremities: Atraumatic separate for the right hand where there is resolving ecchymosis and only minimal soft tissue swelling and a posterior mold is in place, negative for cords or calf pain. Neurovascular unremarkable. Neuro: Awake, alert, and oriented to person and cooperative on my evaluation. He moves all extremities but has increased stiffness throughout which is not new or different. Gait was not assessed Exam nonfocal. Diagnostics: [] Therapeutics: [] I discussed with the son and the nursing structural steel erection supervisor has discussed with the family whether or not they would like a metabolic workup at this point and they have declined. They feel that this is all related to his dementia and they want to just home and follow-up with Dr. Cooper. Impression: Episode of aggressive behavior with history of dementia stable Definitive disposition and diagnosis as appropriate pending reevaluation and review of above. right hand Pain Score (Numeric/FACES): 2 - Related Data Allergies Allergy/AdvReac Type Severity Reaction Status Date / Time No Known Allergies Allergy Verified 08/04/17 20:56 Home Meds: Home Meds Albuterol Sulfate [Proair Hfa] 2 inh IH Q4H PRN 01/03/17 [History] LORazepam 0.5 mg PO QID PRN 01/03/17 [History] Aspirin 1 tab PO DAILY 07/29/17 [History] QUEtiapine [SEROquel] 0 tab PO DAILY 07/29/17 [History] Past Medical History - Past Health History Medical/Surgical History: Denies Medical/Surgical History HEENT History: Reports: Impaired Vision, Other (See Below) Other HEENT History: wears glasses Cardiovascular History: Reports: None Respiratory History: Reports: Asthma, COPD, SOB Gastrointestinal History: Reports: GERD Genitourinary History: Reports: Chronic Renal Insuffiency Musculoskeletal History: Reports: None Neurological History: Reports: None Psychiatric History: Reports: Anxiety, Dementia Endocrine/Metabolic History: Reports: None Hematologic History: Reports: None Immunologic History: Reports: None Oncologic (Cancer) History: Reports: None Dermatologic History: Reports: None - Infectious Disease History Infectious Disease History: Reports: None - Past Surgical History HEENT Surgical History: Reports: None Respiratory Surgical History: Reports: None Male Surgical History: Reports: None Endocrine Surgical History: Reports: None Neurological Surgical History: Reports: None Musculoskeletal Surgical History: Reports: None Oncologic Surgical History: Reports: None Dermatological Surgical History: Reports: None Social & Family History - Family History Family Medical History: Noncontributory - Tobacco Use Smoking Status *Q: Never Smoker - Caffeine Use Caffeine Use: Reports: None - Recreational Drug Use Recreational Drug Use: No - Living Situation & Occupation Living situation: Reports: Occupation: Retired ED ROS GENERAL - Review of Systems Review Of Systems: ROS reveals no pertinent complaints other than HPI. ED EXAM, GENERAL - Physical Exam Exam: See Below (See dictation) Course - Vital Signs Last Recorded V/S: Last Vital Signs Temp 36.5 C 08/04/17 20:56 Pulse 110 H 08/04/17 20:56 Resp 18 08/04/17 20:56 BP 122/77 08/04/17 20:56 Pulse Ox 97 08/04/17 20:56 Departure - Departure Time of Disposition: 21:52 Disposition: Home, Self-Care 01 Condition: Good Clinical Impression: Episode of abnormal behavior Dementia Qualifiers: Dementia type: unspecified type - Discharge Information Referrals: PCP,None [Primary Care Provider] - Forms: ED Department Discharge Additional Instructions: The following information is given to patients seen in the emergency department who are being discharged to home. This information is to outline your options for follow-up care. We provide all patients seen in our emergency department with a follow-up referral. The need for follow-up, as well as the timing and circumstances, are variable depending upon the specifics of your emergency department visit. If you don't have a primary care physician on staff, we will provide you with a referral. We always advise you to contact your personal physician following an emergency department visit to inform them of the circumstance of the visit and for follow-up with them and/or the need for any referrals to a consulting specialist. The emergency department will also refer you to a specialist when appropriate. This referral assures that you have the opportunity for followup care with a specialist. All of these measure are taken in an effort to provide you with optimal care, which includes your followup. Under all circumstances we always encourage you to contact your private physician who remains a resource for coordinating your care. When calling for followup care, please make the office aware that this follow-up is from your recent emergency room visit. If for any reason you are refused follow-up, please contact the [facility] emergency department at and ask to speak to the emergency department charge nurse. [address] [place] [address] Discontinued home medications and follow-up with Dr. Cooper on Sunday and continue conversations with him about care plan. Return to ER as needed and as discussed
== END 2017-08-04 22:07 | disposition home or self-care (01) ==
LOC: MW.ED 20:43
DX: F03.91 Unspecified dementia, unspecified severity, with behavioral disturbance (principal); J44.9 Chronic obstructive pulmonary disease, unspecified; K21.9 Gastro-esophageal reflux disease without esophagitis; N18.9 Chronic kidney disease, unspecified; F41.9 Anxiety disorder, unspecified; Z79.899 Other long term (current) drug therapy; Z79.82 Long term (current) use of aspirin
CPT/HCPCS: 99284